=== PATIENT | male | born 1970 | race Caucasian/White ===

== ENCOUNTER 2018-10-24 20:07 | Emergency (ER) | payer MEDICARE, MEDICAID ==
[~2018-10-24] VITALS: Ht 167.6 cm; Wt 77.3 kg
[2018-10-24 20:12] VITALS: Ht 167.6 cm; Wt 77.3 kg
[2018-10-24] MEDS ORDERED: FOLIC ACID1 MG PO (20:14)
[2018-10-24] MEDS ORDERED: [UNRECOGNIZED DRUG - OTHER] (20:14)
[2018-10-24] MEDS ORDERED: BACLOFEN10 MG PO (20:14)
[2018-10-24] MEDS ORDERED: LIBRIUM 10 MG C10 MG PO (20:14)
[2018-10-24] MEDS ORDERED: MOBIC7.5 MG PO (20:15)
[2018-10-24 20:37] LABS: EOSINOPHILS 5.8 % (0-7); HEMATOCRIT 42.6 % (42.0-54.0); HEMOGLOBIN 14.6 g/dL (13.5-17.5); IMMATURE GRANULOCYTES 0.2 % (0-5); LYMPHOCYTES 34.9 % (15-50); MCH 32.3 pg (26.0-34.0); MCHC 34.3 g/dL (31.0-37.0); MCV 94.2 fL (80.0-100.0); MEAN PLATELET VOLUME 10.2 fL (7.4-10.4); MONOCYTES 9.1 % (2-11); PLATELET COUNT 199 10x3/uL (130-400); RBC 4.52 10x6/uL (4.20-6.10); RDW 14.1 % (11.5-14.5); WBC 9.4 10x3/uL (4.8-10.8)
[2018-10-24 21:02] LABS: ALBUMIN 3.3 g/dL (3.4-5.0); ALKALINE PHOSPHATASE 65 U/L (46-116); ALT (SGPT) 50 U/L (10-68); BILIRUBIN - TOTAL 0.28 mg/dL (0.2-1.3); CALC OSMOLALITY 281 mosm/kg (275-300); CALCIUM 8.4 mg/dL (8.5-10.1); CARBON DIOXIDE 26.2 mmol/L (21.0-32.0); CHLORIDE - SERUM 105 mmol/L (98-107); GLUCOSE 107 mg/dL (74-106); POTASSIUM - SERUM 3.9 mmol/L (3.5-5.1); PROTEIN - SERUM 7.3 g/dL (6.4-8.2); SODIUM 139 mmol/L (136-145); UREA NITROGEN 23 mg/dL (7-18); eGFR NON AFRICAN AMERICAN 84 mL/min (90-120)
[2018-10-24] MEDS ORDERED: ALBUTEROL SULF8.5 GM INH (21:26)
[2018-10-24] MEDS ORDERED: VIBRAMYCIN 100100 MG PO (21:26)
[2018-10-24] MEDS ORDERED: PREDNISONE20 MG PO (21:27)
[2018-10-24 22:02] VITALS: BP 128/87
[2018-10-25] MEDS ORDERED: BUSPAR10 MG PO (08:23)
[2018-10-25] MEDS ORDERED: KENALOG 0.1 % 115 GM TOPICAL (08:24)
[2018-10-25] MEDS ORDERED: ZOVIRAX800 MG PO (08:25)
[2018-10-25] MEDS ORDERED: LEXAPRO20 MG PO (08:25)
[2018-10-25 08:39] VITALS: Ht 167.6 cm; Wt 77.3 kg
== END 2018-10-24 22:00 | disposition home or self-care (01) ==
LOC: D.ER 20:07
PROVIDERS: Family Medicine
DX: J45.909 Unspecified asthma, uncomplicated (principal)

== ENCOUNTER 2018-10-25 00:19 | Observation (INO) | payer MEDICARE, MEDICAID ==
[~2018-10-25 00:19] MED LIST: ALBUTEROL SULF8.5 GM INH; BACLOFEN10 MG PO; FOLIC ACID1 MG PO; LIBRIUM 10 MG C10 MG PO; MOBIC7.5 MG PO; PREDNISONE20 MG PO; VIBRAMYCIN 100100 MG PO; [UNRECOGNIZED DRUG - OTHER]
--- NOTE | 2018-10-25 01:00 | NUR ---
MENTAL HEALTH NURSE TO ROOM TO PERFORMED SUICIDAL SCREEN. PT STATES HE IS NOW SUICIDAL AND PLANS TO KILL HIMSELF BY OVERDOSING ON HIS MEDICATIONS. PT MOVED TO SECURE ROOM, BELONGINGS TAKEN, PLACED IN PAPER SCRUBS. SITTER AT BEDSIDE
[2018-10-25 01:03] LABS: BASOPHILS 0.7 % (0-2); EOSINOPHILS 1.6 % (0-7); HEMATOCRIT 41.6 % (42.0-54.0); HEMOGLOBIN 14.5 g/dL (13.5-17.5); IMMATURE GRANULOCYTES 0.1 % (0-5); LYMPHOCYTES 17.3 % (15-50); MCH 32.5 pg (26.0-34.0); MCHC 34.9 g/dL (31.0-37.0); MCV 93.3 fL (80.0-100.0); MEAN PLATELET VOLUME 10.3 fL (7.4-10.4); MONOCYTES 1.5 % (2-11); NEUTROPHILS 78.8 % (40-80); PLATELET COUNT 192 10x3/uL (130-400); RBC 4.46 10x6/uL (4.20-6.10); RDW 13.9 % (11.5-14.5)
--- NOTE | 2018-10-25 01:06 | NUR ---
DR MASSEY NOTIFIED AND 1;1 SITTER OBSERVATION ORDERED. SITTER AT BEDSIDE. NOTIFIED CHARGE NURSE AND ATTENDING IN REGARDS TO ASSESSMENT FINDINGS. RESOURCES GIVEN TO PT AND SAFETY PLAN INITIATED.
[2018-10-25 01:07] LABS: WBC 6.7 10x3/uL (4.8-10.8)
[2018-10-25 01:15] LABS: ALBUMIN 3.4 g/dL (3.4-5.0); ALKALINE PHOSPHATASE 79 U/L (46-116); ALT (SGPT) 47 U/L (10-68); BILIRUBIN - TOTAL 0.42 mg/dL (0.2-1.3); CALC OSMOLALITY 286 mosm/kg (275-300); CALCIUM 8.2 mg/dL (8.5-10.1); CARBON DIOXIDE 26.8 mmol/L (21.0-32.0); CHLORIDE - SERUM 103 mmol/L (98-107); CREATININE - SERUM 1.2 mg/dL (0.6-1.3); POTASSIUM - SERUM 3.9 mmol/L (3.5-5.1); PROTEIN - SERUM 7.4 g/dL (6.4-8.2); SODIUM 138 mmol/L (136-145); UREA NITROGEN 21 mg/dL (7-18); eGFR NON AFRICAN AMERICAN 68 mL/min (90-120)
[2018-10-25 01:16] LABS: GLUCOSE 245 mg/dL (74-106)
[2018-10-25 01:23] LABS: CREATINE KINASE 203 UL (21-232); LIPASE 104 U/L (73-393); MAGNESIUM - SERUM 1.8 mg/dL (1.8-2.4); PRO BNP 18 pg/mL (0-125)
[2018-10-25 01:25] LABS: TROPONIN-I < 0.017 ng/mL (0.000-0.060)
[2018-10-25 01:45] LABS: THYROID STIMULATING HORMONE 0.72 uIU/mL (0.36-3.74)
[2018-10-25 02:35] LABS: UDS - AMPHET NEGATIVE QUAL (NEGATIVE); UDS - BARB NEGATIVE QUAL (NEGATIVE); UDS - BENZO POSITIVE QUAL (NEGATIVE); UDS - COCAINE NEGATIVE QUAL (NEGATIVE); UDS - OPIATE NEGATIVE QUAL (NEGATIVE); UDS - PCP NEGATIVE QUAL (NEGATIVE); UDS - THC NEGATIVE QUAL (NEGATIVE)
--- NOTE | 2018-10-25 05:00 | NUR ---
SPOKE WITH STAFF AT [facility]. STATED THEY WOULD REVIEW HIS CASE UPON DISCHARGE FROM THE HOSPITAL.
--- NOTE | 2018-10-25 06:41 | NUR ---
PT REPORT CALLED TO [facility]. INFORMED BY UNDERCOLLAR BASTER THAT PT COULD NOT BE TRANSPORTED UNTIL A SITTER WAS AVAILABLE FOR PT
[2018-10-25 08:01] VITALS: BP 124/74
[2018-10-25] MEDS ORDERED: BUSPAR10 MG PO (08:23)
[2018-10-25] MEDS ORDERED: KENALOG 0.1 % 115 GM TOPICAL (08:24)
[2018-10-25] MEDS ORDERED: LEXAPRO20 MG PO (08:25)
[2018-10-25] MEDS ORDERED: ZOVIRAX800 MG PO (08:25)
[2018-10-25 08:39] VITALS: BMI 27.5
--- NOTE | 2018-10-25 08:45 | NUR ---
PATIENT ARRIVED TO THE ROOM VIA WHEELCHAIR WITH HOSPITAL STAFF AND PERSONAL SITTER.
[2018-10-25 15:19] VITALS: BP 129/75
--- NOTE | 2018-10-25 16:17 | NUR ---
JENNIFER RICH AND DR RAMIREZ AWARE OF THE LACTIC ACID RESULTS, THEY BOTH HAVE JUST SEEN THE PATIENT
[2018-10-25 20:00] VITALS: BP 105/64
--- NOTE | 2018-10-25 21:44 | NUR ---
PATIENT ASKED ABOUT MEDICATION BIKTARVY. PATIENT INFORMED THAT I SEEN THE MEDICATION IS ON HOLD AND I DO NOT HAVE AN ORDER FOR IT AT THIS TIME. PATIENT STARTED SCREAMING AT ME THAT HE WAS GOING TO LEAVE AMA. PATIENT THEN GOT OUT OF BED AND THROWING HIS ARMS AROUND AND PACING ROOM. PATIENT INFORMED THAT I WOULD CALL THE DOCTOR AND SEE WHAT WAS GOING ON WITH HIS MEDICATION. PATIENT THEN SAID HE BROUGHT HIS MEDICATION IN LAST NIGHT AND I NEEDED TO GIVE IT TO HIM. I TOLD THE PATIENT THAT I DID NOT HAVE ACCESS TO THIS MEDICATION AT THIS TIME BUT I WOULD DO EVERYTHING IN MY POWER TO GET IT TO HIM. HE THEN PROCEEDED TO YELL AT ME THAT I WAS NOT HELPING HIM AND I WAS JUST ARGUING. I TOLD HIM I WAS TRYING TO EXPLAIN TO HIM WHAT WAS HAPPENING WITH HIS CARE. I WENT OUT OF THE ROOM WHILE THE SITTER STAYED WITH HIM TRYING TO CALM HIM DOWN. CHARGE NURSE WENT INTO ROOM TO TALK TO HIM WELL ANOTHER NURSE. I CALLED SECURITY AND HAD THEM COME AND TALK WITH THE PATIENT. I ALSO CALLED THE INTERNATIONAL LOGISTICS MANAGER DOCTOR, CATHIE KUMAR. JOSÉ SAID IF WE FIND THAT MEDICATION THAT WE COULD PUT IN AN ORDER FOR PATIENT'S OWN MEDICATION. PHARMACY WAS CALLED AND THEY STATED WE DO NOT CARRY THAT MEDICATION BECAUSE IT IS SO EXPENSIVE AND IT EXPIRES BEFORE IT IS USED. PATIENT TOLD OTHER NURSE THAT BE CAME IN WITH A BACKPACK LAST NIGHT. ER NURSE KUMAR CALLED AND ASKED IF SHE KNEW WHERE HIS BACKPACK WAS. THAT NURSE DID NOT REMEMBER PATIENT COMING IN WITH A BACKPACK. CAROLINE WITH [facility] CALLED AND ASKED IF PATIENT HAD ANYTHING IN THE SAFE. CAROLINE STATES THERE WAS NOTHING IN THE LOG. HOUSING TRADESHOW WORKER NOTIFIED. CALLED FERMIN IN [facility] WHO DID HIS SUICIDE ASSESSMENT LAST NIGHT AND HE SAID PATIENT DID NOT HAVE ANY PROPERTY WHEN HE CAME IN. JENNY IN ER STATED THAT THE FIRST TIME PATIENT CAME IN LAST NIGHT HE CAME IN WITH A BACKPACK AND LEFT WITH A BACKPACK. WHEN HE CAME IN THE SECOND TIME WHICH GOT HIM ADMITTED HE CAME BY EMS WITHOUT A BACKPACK. THIS NURSE CALLED HIS MOTHER AMOL WHO IS HIS EMERGENCY CONTACT AND ASKED IF SHE HAD ACCESS TO HIS MEDICATION. SHE SAID SHE HAD A PHAM TO HIS APARTMENT AND WOULD CHECK IT TOMORROW. PATIENT'S MOTHER THEN SAID SHE DID NOT THINK HE HAD HIS MEDICATION AT HIS HOME BECAUSE HE HAD TOLD HER A FEW DAYS PRIOR THAT HE LEFT HIS MEDICATIONS AT HER HOME. PATIENT'S MOTHER SAID SHE WOULD LOOK FOR HIS MEDICATIONS AND TRY TO BRING THEM TO THE HOSPITAL TOMORROW IF SHE FOUND THEM.
[2018-10-26] VITALS: BP 116/74
--- NOTE | 2018-10-26 | NUR ---
PATIENT CAME OUT OF ROOM TO THE NURSE'S STATION SCREAMING ABOUT HIS MEDICATION. PATIENT WAS INFORMED THAT WE HAVE BEEN TRYING TO TRACK DOWN HIS BELONGINGS. PATIENT WAS THROWING HIS HANDS AROUND, CURSING AND SCREAMING THAT WE WERE DOING NOTHING TO FIND HIS PROPERTY. HE STATES HE IS OVERDUE FOR HIS MEDICATION AND WE NEED TO GIVE IT TO HIM. HE ALSO STATES HE IS GOING TO [facility] AND STAFF IF HE DIDN'T GET IT RIGHT NOW. THIS NURSE CALLED [facility] AFTER HE REFUSED TO GO BACK TO HIS ROOM. NURSES WITH HELP OF [facility]KE GOT HIM INTO HIS ROOM.
--- NOTE | 2018-10-26 00:51 | NUR ---
PATIENT'S BELONGINGS WERE FOUND IN CHRISS'S OFFICE. BELONGINGS INVENTORIED. BELONGINGS INCLUDE SAFETY PLAN, 1 PAIR SHOES, 1 HAT, 3 SHIRTS, 1 PAIR OF SHORTS, 1 PAIR UNDERWEAR, 1 PAIR PANTS, 1 PAIR SOCKS, 1 PAIR PAJAMA PANTS, NICOTINE GUM, KEYS, WALLET WITH PAPER SEALER'S LICENSE, 1 BANK CARD AND 9 DOLLARS IN [place]. CELL PHONE, BELT, GIFT CARD, NECKLACE WITH CROSS, BUTCHER HEAD, NASAL SPRAY, 4 SCRATCH OFF TICKETS, SMALL BLACK BAG, 2 TOOTHBRUSHES, 1 TOOTHPASTE, 1 HAIRBRUSH, 2 SMALL BOTTLE OF SHAMPOO, BOTTLE HEAD PIECE ASSEMBLER, APPOINTMENT CALANDER, MEDICATION SCRIPTS, 3 CHARGERS, 5 DOLLARS AND 36 CENTS IN COINS, SPEAKER, 1 PACK OF CIGARETTES, 1 EMPTY PACK OF CIGARETTES, A BATTERY BOOSTER AND ONE LARGE BLACK BAG. ALL OF THESE BELONGINGS WERE PLACED IN THE LARGE BLACK BAG BY PATIENT AND PUT INTO A BLUE LAUNDRY BAG WITH A NAME STICKER ATTACHED. ALSO IN BELONGINGS WERE MULTIPLE MEDICATIONS, BIKTARVY 21 COUNT, BACLOFEN 5 MG 77 COUNT, BACTRIM BOTTLE WITH MIXED MEDICATIONS THAT INCLUDES WHITE TABLETS WITH 251 IG WITH 10 COUNT, PINK TABLE WITH A J AND TRIANGLE WITH 2 COUNT AND WHITE TABLET H49 WITH 11 COUNT. FOLIC ACID 1 MG 21 COUNT, MELOXICAM 15MG 20 COUNT, CHLORDIAZEPOXIDE 10MG 59 COUNT, COUGH DROPS 15 COUNT TRIAMCINOLO 0.1% 1 COUNT AND PROAIR 1 COUNT. ALL MEDICATIONS PLACED IN A PATIENT'S OWN MEDICATION ENVELOPE WITH NAME AND SIGNATURE ON IT. HOUSING STUD MASTER/MISTRESS CALLED TO STOCK PITCHER PROPERTY AND MEDICATIONS.
--- NOTE | 2018-10-26 01:17 | NUR ---
HOUSING DIGITAL ACCOUNT SUPERVISOR PLACED BELONGINGS IN CHRISS'S OFFICE. WILL PASS TO DAYSHIFT WERE HIS BELONGINGS ARE.
--- NOTE | 2018-10-26 02:23 | NUR ---
I have reviewed this patient and I concur with the Shift Assessment completed by the Licensed Practical Nurse today this shift.
[2018-10-26 06:55] LABS: BASOPHILS 0.1 % (0-2); EOSINOPHILS 2.3 % (0-7); HEMATOCRIT 40.5 % (42.0-54.0); HEMOGLOBIN 13.9 g/dL (13.5-17.5); IMMATURE GRANULOCYTES 0.1 % (0-5); LYMPHOCYTES 31.2 % (15-50); MCH 31.9 pg (26.0-34.0); MCHC 34.3 g/dL (31.0-37.0); MCV 92.9 fL (80.0-100.0); MONOCYTES 5.9 % (2-11); NEUTROPHILS 60.4 % (40-80); PLATELET COUNT 165 10x3/uL (130-400); RBC 4.36 10x6/uL (4.20-6.10); RDW 14.1 % (11.5-14.5); WBC 7.8 10x3/uL (4.8-10.8)
--- NOTE | 2018-10-26 07:00 | NUR ---
PATIENT SLEEPING ON HIS RIGHT SIDE, SNORING. SITTER AT BEDSIDE. DOOR OPEN
[2018-10-26 07:02] LABS: CALCIUM 8.4 mg/dL (8.5-10.1); CARBON DIOXIDE 27.9 mmol/L (21.0-32.0); CHLORIDE - SERUM 107 mmol/L (98-107); CREATININE - SERUM 0.9 mg/dL (0.6-1.3); MAGNESIUM - SERUM 2.1 mg/dL (1.8-2.4); POTASSIUM - SERUM 3.6 mmol/L (3.5-5.1); SODIUM 142 mmol/L (136-145); eGFR NON AFRICAN AMERICAN > 90 mL/min (90-120)
[2018-10-26 07:06] LABS: CALC OSMOLALITY 283 mosm/kg (275-300); GLUCOSE 100 mg/dL (74-106); UREA NITROGEN 15 mg/dL (7-18)
--- NOTE | 2018-10-26 07:40 | NUR ---
PATIENT ALERT, SOMEWHAT RESTLESS, WATCHING TV, 1:[address] PER ORDERS FROM DR. MASSEY.
[2018-10-26 08:37] VITALS: BP 150/98
--- NOTE | 2018-10-26 11:31 | MORECARE ---
CASE MANAGEMENT DISCHARGE SUMMARY PATIENT: SHERMAN HAYDEN V UNIT: [id number] ADM DATE: 10/25/18 AGE: 48 : 69 SEX: M ROOM/BED: D.2111 AUTHOR: LEONARDO WARE PHYSICIAN: REFERRING PHYSICIAN: BRANDON ROGERS MD DATE OF SERVICE: 10/26/18 Discharge Plan Patient Name: SHERMAN HAYDEN [facility] [facility] 1970 Planned Disposition: Inpatient Psych Facility Anticipated Discharge Date: 10/26/18 Discharge Date: Expected LOS: 1 Initial Reviewer: [id number] Initial Review Date: 10/26/2018 Generated: 10/26/18 12:31 pm External Providers External Provider: [facility] Next Contact Date: 10/26/2018 Service Request Date: Service Type: Resolution: Reviewer: Comments: Coverage Notice Reviewer: [id number] Boone Morales Notice Issued Date-Time: 10/26/2018 9:40 Notice Type: Medicare Outpatient Observation Notice Notice Delivered To: Patient Relationship to Patient: Self Tax Accountant Name: Delivery Method: HAND - Hand Delivered Lilian Days: Prior Verbal Notification: Recipient Understood Notice: Yes Recipient Signature: Yes Med Rec Note Co-signed by Attending: Coverage Notice Comment: Patient Name: SHERMAN HAYDEN Page [id number] at 1131 All edits/amendments must be made on the electronic document DICTATION DATE: 10/26/18 1131 AD OPERATIONS SPECIALIST: RAYMOND 10/26/18 1131 RPT#: [id number] DC DATE: STATUS: ADM IN [facility] [address] [place] [address] END OF REPORT
--- NOTE | 2018-10-26 11:45 | MORECARE ---
CASE MANAGEMENT DISCHARGE SUMMARY PATIENT: SHERMAN HAYDEN V UNIT: [id number] ADM DATE: 10/25/18 AGE: 48 : 69 SEX: M ROOM/BED: D.211 AUTHOR: LEONARDO WARE PHYSICIAN: REFERRING PHYSICIAN: BRANDON ROGERS MD DATE OF SERVICE: 10/26/18 Discharge Plan Patient Name: SHERMAN HAYDEN [facility] [facility] 1970 Planned Disposition: Inpatient Psych Facility Anticipated Discharge Date: 10/26/18 Discharge Date: Expected LOS: 1 Initial Reviewer: [id number] Initial Review Date: 10/26/2018 Generated: 10/26/18 12:45 pm Coverage Notice Reviewer: [id number] - Cruz Morales Notice Issued Date-Time: 10/26/2018 9:40 Notice Type: Medicare Outpatient Observation Notice Notice Delivered To: Patient Relationship to Patient: Self Press Washer Name: Delivery Method: HAND - Hand Delivered Lilian Days: Prior Verbal Notification: Recipient Understood Notice: Yes Recipient Signature: Yes Med Rec Note Co-signed by Attending: Coverage Notice Comment: Last DP export: 10/26/18 10:31 a Patient Name: SHERMAN HYADEN Page [phone] at 1145 All edits/amendments must be made on the electronic document DICTATION DATE: 10/26/18 1144 TELESCOPE OPERATOR: RAYMOND 10/26/18 1144 RPT#: [id number] DC DATE: STATUS: ADM IN [facility] [address] [place] [address] END OF REPORT
--- NOTE | 2018-10-26 12:07 | MORECARE ---
CASE MANAGEMENT DISCHARGE SUMMARY PATIENT: SHERMAN HAYDEN V UNIT: [id number] ADM DATE: 10/25/18 AGE: 48 : 69 SEX: M ROOM/BED: D.[facility] AUTHOR: LEONARDO WARE PHYSICIAN: REFERRING PHYSICIAN: BRANDON ROGERS MD DATE OF SERVICE: 10/26/18 Discharge Plan Patient Name: SHERMAN HAYDEN Facility: [facility]:[place] : 1970 Planned Disposition: Inpatient Psych Facility Anticipated Discharge Date: 10/26/18 Discharge Date: Expected LOS: 1 Initial Reviewer: [id number] Initial Review Date: 10/26/2018 Generated: 10/26/18 1:07 pm DCPIA - Discharge Planning Initial Assessment Updated by [email or web address]: Cruz Morales on 10/26/18 12:01 pm * Is the patient Alert and Oriented? Yes * How many steps to enter\exit or inside your home? 3 FLIGHTS * PCP DR. LACY * Pharmacy [facility] * Preadmission Environment Home Alone * ADLs Independent * Equipment None * Other Equipment NO MEDICAL EQUIPMENT PROVIDER PREFERENCE * List name and contact numbers for known caregivers / representatives who currently or will assist patient after discharge: NONE PER PATIENT * Verbal permission to speak to the caregivers and representatives has been obtained from the patient. No * Community resources currently utilized None * Please name any agencies selected above. NONE - PATIENT REPORTS NO OUTPATIENT PSYCHIATRIC FOLLOW UP AND NO LOCAL PSYCHIATRIST * Additional services required to return to the preadmission environment? Yes * Can the patient safely return to the preadmission environment? Yes * Has this patient been hospitalized within the prior 30 days at any hospital? No Coverage Notice Reviewer: [id number] - Cruz Morales Notice Issued Date-Time: 10/26/2018 9:40 Notice Type: Medicare Outpatient Observation Notice Notice Delivered To: Patient Relationship to Patient: Self Director Of Quality Name: Delivery Method: HAND - Hand Delivered Lilian Days: Prior Verbal Notification: Recipient Understood Notice: Yes Recipient Signature: Yes Med Rec Note Co-signed by Attending: Coverage Notice Comment: Last DP export: 10/26/18 10:45 a Patient Name: SHERMAN HAYDEN Page [phone] at 1207 All edits/amendments must be made on the electronic document DICTATION DATE: 10/26/18 1206 ADVICE CLERK: RAYMOND 10/26/18 1206 RPT#: [id number] DC DATE: STATUS: ADM IN [facility] [address] [place] [address] END OF REPORT
[2018-10-26 12:08] VITALS: BP 141/90
--- NOTE | 2018-10-26 12:14 | MORECARE ---
CASE MANAGEMENT DISCHARGE SUMMARY PATIENT: SHERMAN HAYDEN V UNIT: [id number] ADM DATE: 10/25/18 AGE: 48 : 68 SEX: M ROOM/BED: D.2111 AUTHOR: JEANIE,DOC PHYSICIAN: REFERRING PHYSICIAN: BRANDON ROGERS MD DATE OF SERVICE: 10/26/18 Discharge Plan Patient Name: SHERMAN HAYDEN Facility: [facility]:[place] : 1970 Planned Disposition: Inpatient Psych Facility Anticipated Discharge Date: 10/26/18 Discharge Date: Expected LOS: 1 Initial Reviewer: [email or web address] Initial Review Date: 10/26/2018 Generated: 10/26/18 1:14 pm Comments DCP- Discharge Planning Updated by [email or web address]: Cruz Morales on 10/26/18 11:[address] Patient Name: SHERMAN HAYDEN Admission Status: ER Accout number: [id number] Admission Date: 10-25-2018 : 1970 Admission Diagnosis: Attending: BRANDON ROGERS Current LOS: 1 Anticipated DC Date: 10-26-2018 Planned Disposition: Inpatient Psych Facility Primary Insurance: [facility] MEDICARE SOLUTIONS PLANNED EXTERNAL PROVIDER: [facility] OR FIRST ACCEPTING FACILITY Discharge Planning Comments: CM REVIEWED CHART WITH PHYSICIAN DIRECTION FOR INPATIENT PSYCHIATRIC CARE. CM MET WITH PT IN ROOM TO DISCUSS DISCHARGE PLANNING AND NEEDS. PT REPORTS LIVING AT HOME INDEPENDENTLY AND ALONE. PT HAS NO MEDICAL EQUIPMENT AND NO OUTSIDE SERVICES ASSISTING IN THE HOME. PT DOES NOT ATTEND OUTPATIENT PSYCHIATRIC COUNSELING, HAS NO OUTPATIENT PSYCHIATRIST LOCALLY. PT REPORTS DR. LACY PRESCRIBES HIS MEDICATIONS. PT REPORTS HIS LAST INPATIENT PSYCHIATRIC CARE WAS ABOUT 10 MONTHS AGO AT [facility] IN [place]. PT REPORTS HE WAS THERE FOR DEPRESSION AND MEDICATION ADJUSTMENTS. PT CONTINUES TO REPORTS SUICIDAL IDEATIONS WITH PLAN TO TAKE ALL OF HIS PILLS AT HOME. PT IS WILLING FOR PLACEMENT AND REQUESTED [facility] IN [place] OR SOMEWHERE IN [place]. CM EXPLAINED THAT TRANSFER WOULD BE REQUESTED FOR THE [facility], BUT IS DECLINED, IT WOULD BE THE CLOSEST FIRST ACCEPTING FACILITY. PT REPORTS AGREEMENT WITH PLAN. MEDICARE OUTPATIENT OBSERVATION NOTICE PROVIDED AND DISCUSSED. CM PAGED AND SPOKE TO CATHIE MIRANDA WHO ADVISED TO GIVE DR. SHEA'S NUMBER FOR DOCTOR TO DOCTOR CALL. CM CALLED [facility], , PROVIDED INFORMATION TO XIN. CM FAXED TRANSFER INFORMATION PACKET TO [facility] FA[facility] AT [phone]. CM WAITING FIRST ACCEPTING PSYCHIATRIC FACILITY FOR TRANSFER VIA AMBULANCE. Termite Control Technician: Cruz Morales DCPIA - Discharge Planning Initial Assessment Updated by [email or web address]: Cruz Morales on 10/26/18 12:01 pm * Is the patient Alert and Oriented? Yes * How many steps to enter\exit or inside your home? 3 FLIGHTS * PCP DR. LACY * Pharmacy [facility] * Preadmission Environment Home Alone * ADLs Independent * Equipment None * Other Equipment NO MEDICAL EQUIPMENT PROVIDER PREFERENCE * List name and contact numbers for known caregivers / representatives who currently or will assist patient after discharge: NONE PER PATIENT * Verbal permission to speak to the caregivers and representatives has been obtained from the patient. No * Community resources currently utilized None * Please name any agencies selected above. NONE - PATIENT REPORTS NO OUTPATIENT PSYCHIATRIC FOLLOW UP AND NO LOCAL PSYCHIATRIST * Additional services required to return to the preadmission environment? Yes * Can the patient safely return to the preadmission environment? Yes * Has this patient been hospitalized within the prior 30 days at any hospital? No Coverage Notice Reviewer: [id number] - Cruz Morales Notice Issued Date-Time: 10/26/2018 9:40 Notice Type: Medicare Outpatient Observation Notice Notice Delivered To: Patient Relationship to Patient: Self Agent Ticketing Gate Name: Delivery Method: HAND - Hand Delivered Lilian Days: Prior Verbal Notification: Recipient Understood Notice: Yes Recipient Signature: Yes Med Rec Note Co-signed by Attending: Coverage Notice Comment: Last DP export: 10/26/18 11:07 a Patient Name: SHERMAN HAYDEN Page [phone] at 1214 All edits/amendments must be made on the electronic document DICTATION DATE: 10/26/18 1214 BARK SCALER: RAYMOND 10/26/18 1214 RPT#: [id number] DC DATE: STATUS: ADM IN [facility] [address] [place] [address] END OF REPORT
--- NOTE | 2018-10-26 15:15 | CN ---
PATIENT NAME:SHERMAN HAYDEN V MEDICAL RECORD: [id number] : 68 LOCATION:DUsman D.2111 ADMIT DATE: 10/25/18 ACCOUNT: [id number] CONSULTING PHYSICIAN: DAWOOD MASSEY MD REFERRING PHYSICIAN: BRANDON ROGERS MD DATE OF CONSULTATION: 10/25/2018 IDENTIFYING DATA: The patient is 48 years old. He is admitted to the hospital on a voluntary basis. CHIEF COMPLAINT: Shortness of breath. HISTORY OF PRESENT ILLNESS: The patient came to the Emergency Room complaining of shortness of breath after having sprayed for bed bugs in his apartment. He says he wants to kill himself because there are bugs in his apartment. He has delusions and is telling me that he intends to kill himself. He endorses numerous neurovegetative depressive symptoms as well as psychotic symptoms. MENTAL STATUS EXAMINATION: The patient is awake, alert and oriented to person, place, and somewhat to time and situation. His mood is flat. His affect is constricted. Thought processes are circumstantial. Memory, concentration, and abstraction abilities are mildly impaired and he denies any intent to harm others, but endorses suicidal thoughts as well as psychotic symptoms. ASSESSMENT: Schizophrenia, chronic undifferentiated PLAN: The patient is in need of inpatient psychiatric care and medication stabilization. He is delusional and suicidal. He has a longitudinal history consistent with schizophrenia with extensive inpatient and outpatient treatment. In addition to this, he is HIV positive, hepatitis C positive, has a seizure disorder and diabetes. He does not appear to have any acute medical needs that would prohibit him from going to an inpatient facility. He has been to the [facility] in [place] before and would like to go back there if practicable. TRANSINT:[id number] Voice Confirmation ID: [id number] DOCUMENT ID: [id number] DAWOOD MASSEY MD at 1515 CC: [id number] DICTATION DATE: 10/25/18 1521 SHEEP HERDER: 10/25/18 1543 ADM IN [place] [address] [place] [address]
--- NOTE | 2018-10-26 15:47 | MORECARE ---
CASE MANAGEMENT DISCHARGE SUMMARY PATIENT: SHERMAN HAYDEN V UNIT: [id number] ADM DATE: 10/25/18 AGE: 48 : 68 SEX: M ROOM/BED: D.[facility] AUTHOR: LEONARDO WARE PHYSICIAN: REFERRING PHYSICIAN: BRANDON ROGERS MD DATE OF SERVICE: 10/26/18 Discharge Plan Patient Name: SHERMAN HAYDEN Facility: [facility]:[place] : 1970 Planned Disposition: Inpatient Psych Facility Anticipated Discharge Date: 10/26/18 Discharge Date: Expected LOS: 1 Initial Reviewer: [id number] Initial Review Date: 10/26/2018 Generated: 10/26/18 4:47 pm Comments DCP- Discharge Planning Updated by [id number]: Cruz Morales on 10/26/18 2:[address] Patient Name: SHERMAN HAYDEN Encounter No: [id number] : 1970 Primary Insurance: [employer] MEDICARE SOLUTIONS Anticipated DC Date: 10-26-2018 Planned Disposition: Inpatient Psych Facility External Planned Provider: [facility] follow-up note: CM RECEIVED CALL FROM XIN OF [facility] WHO ADVISED THAT PT HAS BEEN ACCEPTED BY DR. CAI OF [facility], PT WILL ADMIT TO UNIT 1, NUMBER FOR NURSE REPORT IS [phone]. XIN ADVISED THAT DR. CAI DOES NOT REQUIRE A DOC TO DOC. CM NOTIFIED BEDSIDE NURSE, CATHIE MIRANDA AND CHANNEL PROCESS SUPERVISOR NURSE. PT NOTIFIED AND IN AGREEMENT WITH TRANSFER TO THE [facility] IN [place]. NURSE REPORT IS [phone], PT TO ADMIT TO UNIT 1 AT THE [facility]. PT TO TRANSPORT VIA AMBULANCE. ZANA Ortez DCP- Discharge Planning Updated by [id number]: Cruz Morales on 10/26/18 11:[address] Patient Name: SHERMAN HAYDEN Admission Status: ER Accout number: [id number] Admission Date: 10-25-2018 : 1970 Admission Diagnosis: Attending: BRANDON ROGERS Current LOS: 1 Anticipated DC Date: 10-26-2018 Planned Disposition: Inpatient Psych Facility Primary Insurance: [employer] MEDICARE SOLUTIONS PLANNED EXTERNAL PROVIDER: [facility] OR FIRST ACCEPTING FACILITY Discharge Planning Comments: CM REVIEWED CHART WITH PHYSICIAN DIRECTION FOR INPATIENT PSYCHIATRIC CARE. CM MET WITH PT IN ROOM TO DISCUSS DISCHARGE PLANNING AND NEEDS. PT REPORTS LIVING AT HOME INDEPENDENTLY AND ALONE. PT HAS NO MEDICAL EQUIPMENT AND NO OUTSIDE SERVICES ASSISTING IN THE HOME. PT DOES NOT ATTEND OUTPATIENT PSYCHIATRIC COUNSELING, HAS NO OUTPATIENT PSYCHIATRIST LOCALLY. PT REPORTS DR. LACY PRESCRIBES HIS MEDICATIONS. PT REPORTS HIS LAST INPATIENT PSYCHIATRIC CARE WAS ABOUT 10 MONTHS AGO AT [facility] IN [place]. PT REPORTS HE WAS THERE FOR DEPRESSION AND MEDICATION ADJUSTMENTS. PT CONTINUES TO REPORTS SUICIDAL IDEATIONS WITH PLAN TO TAKE ALL OF HIS PILLS AT HOME. PT IS WILLING FOR PLACEMENT AND REQUESTED THE [facility] IN [place] OR SOMEWHERE IN [place], [place]. CM EXPLAINED THAT TRANSFER WOULD BE REQUESTED FOR THE [facility], BUT IS DECLINED, IT WOULD BE THE CLOSEST FIRST ACCEPTING FACILITY. PT REPORTS AGREEMENT WITH PLAN. MEDICARE OUTPATIENT OBSERVATION NOTICE PROVIDED AND DISCUSSED. CM PAGED AND SPOKE TO CATHIE MIRANDA WHO ADVISED TO GIVE DR. SHEA'S NUMBER FOR DOCTOR TO DOCTOR CALL. CM CALLED [facility], , PROVIDED INFORMATION TO XIN. CM FAXED TRANSFER INFORMATION PACKET TO [facility] FA[facility] AT [phone]. CM WAITING FIRST ACCEPTING PSYCHIATRIC FACILITY FOR TRANSFER VIA AMBULANCE. Wood Ski Maker: Cruz Morales [facility] Initial Assessment Updated by [id number]: Cruz Morales on 10/26/18 12:01 pm * Is the patient Alert and Oriented? Yes * How many steps to enter\exit or inside your home? 3 FLIGHTS * PCP DR. LACY * Pharmacy [facility] * Preadmission Environment Home Alone * ADLs Independent * Equipment None * Other Equipment NO MEDICAL EQUIPMENT PROVIDER PREFERENCE * List name and contact numbers for known caregivers / representatives who currently or will assist patient after discharge: NONE PER PATIENT * Verbal permission to speak to the caregivers and representatives has been obtained from the patient. No * Community resources currently utilized None * Please name any agencies selected above. NONE - PATIENT REPORTS NO OUTPATIENT PSYCHIATRIC FOLLOW UP AND NO LOCAL PSYCHIATRIST * Additional services required to return to the preadmission environment? Yes * Can the patient safely return to the preadmission environment? Yes * Has this patient been hospitalized within the prior 30 days at any hospital? No Coverage Notice Reviewer: [id number] Boone Morales Notice Issued Date-Time: 10/26/2018 9:40 Notice Type: Medicare Outpatient Observation Notice Notice Delivered To: Patient Relationship to Patient: Self Audio Visual Manager Name: Delivery Method: HAND - Hand Delivered Lilian Days: Prior Verbal Notification: Recipient Understood Notice: Yes Recipient Signature: Yes Med Rec Note Co-signed by Attending: Coverage Notice Comment: Last DP export: 10/26/18 11:14 a Patient Name: SHERMAN HAYDEN Page [phone] at 1547 All edits/amendments must be made on the electronic document DICTATION DATE: 10/26/18 1546 PONY CYLINDER PRESS OPERATOR: RAYMOND 10/26/18 1546 RPT#: [id number] DC DATE: STATUS: ADM IN [facility] [address] [place] [address] END OF REPORT
--- NOTE | 2018-10-26 16:55 | NUR ---
CALLED REPORT TO EVAN RAGLAND RN AT [facility], . PATIENT IS TO GO TO UNIT 1. RITA CALLED, SPOKE WITH MASSIMO Sumner AND SHE GAVE AN ESTIMATED COMPOSITE MECHANIC TIME OF 1730. MARGIE CORRALESCLERK CHECKER CALLED TO REPORT PATIENT HAS A BED AND THE NEED TO SIGN THE FORM
[2018-10-26 17:16] VITALS: BP 137/75
[2018-11-15] MEDS ORDERED: PLAVIX75 MG PO (14:32)
[2018-11-15] MEDS ORDERED: METOPROLOL TART50 MG PO (14:32)
[2018-11-15] MEDS ORDERED: PRAVACHOL20 MG PO (14:33)
== END 2018-10-26 17:50 | disposition short-term general hospital (02) ==
LOC: D.ER 00:19 → D.M2 05:06 → OBSVTIME 05:06 → D.M2 05:06 → D.M3 07:16 → D.M2 07:18
PROVIDERS: Family Medicine; ADMIT Family Medicine; ATTEND Family Medicine
DX: J45.901 Unspecified asthma with (acute) exacerbation (principal); E11.65 Type 2 diabetes mellitus with hyperglycemia; B20 Human immunodeficiency virus [HIV] disease; F20.5 Residual schizophrenia; F41.9 Anxiety disorder, unspecified; F32.9 Major depressive disorder, single episode, unspecified

== ENCOUNTER 2018-11-05 07:10 | Inpatient (IN) | payer MEDICARE, MEDICAID ==
[~2018-11-05] VITALS: Ht 167.6 cm; Wt 78.6 kg
--- NOTE | ~2018-11-05 | HEMODYNAMI ---
PATIENT:SHERMAN HAYDEN V MEDICAL RECORD: [id number] : 68 LOCATION:[facility] ADMISSION DATE: 11/05/18 Generatedon:11/05/20189:10 Patient name: SHERMAN HAYDEN Patient #: [id number] SSN: : 1970 Date of study: 11/05/2018 Page: Of Hemodynamic Procedure Report Patient Data Patient Demographics Procedure consent was obtained First Name: SHERMAN Gender: Male Last Name: JACKELYN : 1970 [facility] Initial: V Age: 48 year(s) Patient #: [id number] Race: Unknown Additional ID: [id number] Contact details Address: [address] [place] [address] State: [place] City: [facility] Zip code: [address] Admission Admission Data Admission Date: 11/05/2018 Admission Time: 7:10 Procedure Procedure Types Cath Procedure Diagnostic Procedure LHC LHC w/Coronaries PCI Procedure AMI/SVG/GREENHOUSE ASSISTANT PTCA or Stent AMI-BMS/CHELO Initial Procedure Description Procedure Date Procedure Date: 11/05/2018 Procedure Start Time: 8:19 Procedure End Time: 9:09 Procedure Staff Name Function Jj Marte MD Performing Physician Darian Chin RT Monitor Rebecca Stevens RN Nurse Gabrielle Chappell RT Scrub Kota Alaniz MD Additional personnel Procedure Data Cath Procedure Fluoroscopy Diagnostic fluoroscopy Total fluoroscopy Time: 1.9 time: 1.9 min min Diagnostic fluoroscopy Total fluoroscopy dose: 399 dose: 399 mGy mGy Contrast Material Contrast Material Type Amount (ml) Isovue 370 46 Entry Location Entry Primary Successful Side Size Upsize Upsize Entry Closure Lee ccessful Closure Location (Fr) 1 (Fr) 2 (Fr) Remarks Device Remarks Radial Right 6 Fr Mechanical artery Short Compression Estimated blood loss: 10 ml Diagnostic catheters Device Type Used For End Catheter Placement DIAGNOSTIC Russell 110cm 5 Procedure Fr catheter ([id number]) Procedure Complications No complications Procedure Medications Medication Administration Route Dosage Oxygen NRB 12 l/min Lidocaine 2% added to field 20 Heparin Flush Bag added to field 2 bags (1000units/500ml NS) 0.9% NaCl I.V. 100 ml/hr Radial Cocktail I.A. 1 syringe (Verapamil 2mg/Nitro 400mcg/Heparin 1500units) Refer to Anesthesia Notes for Sedation Medications Heparin Bolus I.V. 4000 units Lopressor I.V. 5 mg Integrilin (Bolus I.V. 6.8 ml 2mg/ml) Hemodynamics Rest Heart Rate: 43 (bpm) Snapshots Pre Cath Intra NCS Post Cath Vital Signs Time Heart Resp SPO2 etCO2 NIBP (mmHg) Rhythm Pain Sedation Rate (ipm) (%) (mmHg) Status Level (bpm) 8:03:52 126 26 94 0 139/85(101) NSR w/ ST 0 (11) 10(A) Elevation , No pain 8:08:06 123 21 93 0 147/82(115) NSR w/ ST 0 (11) 10(A) Elevation , No pain 8:12:18 122 19 92 0 142/84(101) NSR w/ ST 0 (11) 10(A) Elevation , No pain 8:16:36 123 18 95 0 146/78(98) NSR w/ ST 0 (11) 9(A) Elevation , No pain 8:20:46 122 16 93 0 130/65(97) NSR w/ ST 0 (11) 9(A) Elevation , No pain 8:24:57 122 20 92 0 138/80(112) NSR w/ ST 0 (11) 9(A) Elevation , No pain 8:29:07 107 16 92 0 123/75(95) NSR w/ ST 0 (11) 9(A) Elevation , No pain 8:33:19 108 18 94 0 120/75(92) NSR w/ ST 0 (11) 9(A) Elevation , No pain 8:37:23 107 20 96 0 119/74(89) NSR w/ ST 0 (11) 9(A) Elevation , No pain 8:41:29 107 19 94 0 123/75(91) NSR w/ ST 0 (11) 9(A) Elevation , No pain 8:45:39 107 19 95 0 121/74(89) NSR w/ ST 0 (11) 9(A) Elevation , No pain 8:49:49 107 18 96 0 123/74(93) NSR w/ ST 0 (11) 9(A) Elevation , No pain 8:53:56 213 20 93 0 126/73(96) NSR w/ ST 0 (11) 9(A) Elevation , No pain 8:58:04 125 18 93 0 120/70(92) NSR w/ ST 0 (11) 9(A) Elevation , No pain 9:02:14 217 17 91 0 119/71(91) NSR w/ ST 0 (11) 9(A) Elevation , No pain 9:06:22 218 18 93 0 117/65(95) NSR w/ ST 0 (11) 9(A) Elevation , No pain Medications Time Medication Route Dose Verified Delivered Reason Notes E ffectiveness by by 8:16:26 Oxygen NRB 12 Jj Fernandez used for l/min Estuardo Stevens RN procedure 8:16:33 Lidocaine 2% added 20ml Jj Gardner for local to vial Estuardo Marte MD anesthetic field 8:16:39 Heparin Flush added 2 bags Jj Gardner used for Bag to Estuardo Marte MD procedure (1000units/500ml field NS) 8:16:46 Refer to Jj Gardner Anesthesia Notes Estuardo Marte MD for Sedation Medications 8:16:46 0.9% NaCl I.V. 100 Jj Fernandez Per ml/hr Estuardo Stevens RN physician 8:20:37 Lopressor I.V. 5 mg Jj Fernandez Per Estuardo Stevens RN physician 8:20:40 Radial Cocktail I.A. 1 Jj Gardner for (Verapamil syringe Estuardo Marte MD vasodilation 2mg/Nitro 400mcg/Heparin 1500units) 8:21:25 Heparin Bolus I.V. 4000 Jj Fernandez used for units Estuardo Stevens RN procedure 8:24:03 Integrilin I.V. 6.8 ml Jj Fernandez for (Bolus 2mg/ml) Estuardo Stevens RN antiplatelet therapy Procedure Log Time Note 7:44:05 Rebecca Stevens RN sent for patient. Start room use. 7:44:06 Time tracking: Regular hours (M-F 7:00 - 5:00) 7:44:10 Plan of Care:Hemodynamics will remain stable., Cardiac rhythm will remain stable., Comfort level will be maintained., Respiratory function will remain adequate., Patient/ family verbilizes understanding of procedure., Procedure tolerated without complication., Recovers from procedure without complications.. 7:44:12 Diagnostic Cath status Urgent 7:44:14 Signed procedure consent form obtained from patient. 7:59:09 Patient arrives emergently. 7:59:42 Patient received from ED to CCL 1 Alert and oriented. Tansferred to table in Supine position. 7:59:53 Warm blankets applied, and doreen hugger turned on for patient comfort. 8:00:01 Correct patient and procedure confirmed by team. 8:02:31 ECG and BP/O2 sat monitors applied to patient. 8:02:33 Vital chart was started 8:02:34 Baseline sample Acquired. 8:02:42 Rhythm: sinus tachycardia, w/ ST elevation 8:02:46 Full Disclosure recording started 8:03:15 H&P Date Dictated: 11/05/2018 ER History on chart.. 8:03:50 Family unavailable. 8:05:14 PATIENT HAS PSYCHOTIC EVENT THINKS THAT HE HAS SPIDERS AND BUGS ON HIM. 8:06:11 Kota Alaniz MD present and monitoring patient for TIVA. 8:09:08 Is the patient allergic to Iodine/contrast media? Unknown. 8:09:24 Is patient on blood thinner?Yes 8:09:30 ACC The patient was administered the following blood thiners within the last 24 hours: ACCPlavix, ACCHeparin 8:09:58 IV patent on arrival in left hand, right antecubital with 0.9% NaCl at KVO. 8:10:09 Right Radial & Right Groin area was prepped with chlora-prep and draped in sterile fashion 8:10:12 Alarms reviewed by R. N. 8:10:14 Sharps counted by scrub and verified by R.N. 8:15:07 --------ALL STOP TIME OUT------ 8:15:07 Final Timeout: patient, procedure, and site verified with staff and physician. All members of the team are in agreement. 8:15:40 Right Radial & Right Groin site verified by team. 8:15:42 Pt arrived into emergency dept in acute psychosis with st elevation. Anesthesia contacted for sedation plan due to pt swatting and kicking at staff, unable to hold body still due to being "attacked" by bugs and snakes. 8:15:44 Fire Safety Assessment: A--An alcohol-based skin anteseptic being used preoperatively., C--Open oxygen or nitrous oxide is being used., D--An ESU, laser, or fiber-optic light is being used. 8:15:48 Physical assessment completed. ASA score P 5 - A moribund patient who is not expected to survive without the operation as per Jj Marte MD. 8:16:26 Oxygen 12 l/min NRB was administered by Rebecca Stevens RN; used for procedure; 8:16:33 Lidocaine 2% 20ml vial added to field was administered by Jj Marte MD; for local anesthetic; 8:16:39 Heparin Flush Bag (1000units/500ml NS) 2 bags added to field was administered by Jj Marte MD; used for procedure; 8:16:46 0.9% NaCl 100 ml/hr I.V. was administered by Rebecca Stevens RN; Per physician; 8:16:46 Refer to Anesthesia Notes for Sedation Medications was administered by Jj Marte MD; ; 8:16:47 1) 90+ Normal kidney functon but urine findings or structural abnormalities or genetic trait point to kidney disease. 8:17:06 Maximum allowable contrast does (3.7 X eGFR X 0.75)250 ml. 8:17:10 Sedation plan: IV Moderate Sedation Medication:Versed, Fentanyl 8:17:24 Use device set Radial Dx or PCI 8:17:26 Tegaderm 4 x 4 (1626W) opened to sterile field. 8:17:27 ACIST Manifold (14967) opened to sterile field. 8:17:28 ACIST Hand Control (19363) opened to sterile field. 8:17:29 ACIST Syringe (21041) opened to sterile field. 8:17:29 Medline Cath Pack ([id number]) opened to sterile field. 8:17:30 Bag Decanter () opened to sterile field. 8:17:32 MBrace Wrist Support ([id number]) opened to sterile field. 8:17:33 SHEATH 6FR Slender (801060) opened to sterile field. 8:17:36 EMERALD Guide Wire (583-050) opened to sterile field. 8:17:57 Procedure started. 8:19:23 Local anesthetic to right radial artery with Lidocaine 2% by Jj Marte MD.INITIAL ACCESS ONLY 8:19:32 A 6 Fr Short sheath was inserted into the Right Radial artery 8:19:36 A DIAGNOSTIC Russell 110cm 5 Fr catheter (548240) was advanced over the wire and used for Procedure. 8:20:07 LV angiography performed. 8:20:10 LV gram done using CORREA 8:20:16 EF : 60 % 8:20:25 Injector settings: Ml/sec: 5, Volume: 15, 8:20:37 Lopressor 5 mg I.V. was administered by Rebecca Stevens RN; Per physician; 8:20:40 Radial Cocktail (Verapamil 2mg/Nitro 400mcg/Heparin 1500units) 1 syringe I.A. was administered by Jj Marte MD; for vasodilation; 8:20:41 LCA angiography performed. 8:21:20 RCA angiography performed. 8:21:24 Catheter exchanged over wire. 8:21:25 Heparin Bolus 4000 units I.V. was administered by Rebecca Stevens RN; used for procedure; 8:21:37 Use device set [facility] PCI 8:21:44 INFLATOR Merit BasixCompak (GB9418) opened to sterile field. 8:21:46 CHOICE PT Extra Support 182cm wire ([id number]) opened to sterile field. 8:22:43 GUIDE 6FR AR 2.0 catheter (GL9NA45) opened to sterile field. 8:22:54 6 Fr AR 2 guide catheter was inserted over the wire 8:23:01 Pre PCI Site: Kaw mRCA has 90% stenosis. 8:23:09 Choice PT XS wire advanced. 8:23:29 Wire advanced across lesion. 8:24:00 Place stent Inflation Number: 1 A COBRA RX 3.5 X 15 Stent was prepped and advanced across the Mid RCA 90. The stent was deployed at 17 JANAE for 0:10 (min:sec) 0. 8:24:03 Integrilin (Bolus 2mg/ml) 6.8 ml I.V. was administered by Rebecca Stevens RN; for antiplatelet therapy; 8:24:22 TR BAND Standard ([id number]) opened to sterile field. 8:24:43 Stent catheter was removed intact over wire. 8::44 Wire removed. 8:24:46 Guide catheter removed. 8:27:25 Sheath removed intact; hemostasis achieved with Mechanical Compression to the Right Radial artery. 8::27 Procedure ended.(Physican Out) 8:29:17 Fluoroscopy time 01.90 minutes. 8:29:24 Flurop Dose total: 399 8::24 Fluoroscopy dose: 399 mGy 8::28 Contrast amount:Isovue 370 46ml. 8:29:30 Sharps counted by scrub and verified by R.N. 8:31:17 Insertion/operative site no bleeding no hematoma. 8:31:20 TR band inflated with 12cc of air. 8:31:29 Post Procedure Pulses reassessed and unchanged 8:31:45 Post-procedure physical assessment completed. ASA score P 5 - A moribund patient who is not expected to survive without the operation as per jJ Marte MD. 8:34:28 Post procedure rhythm: sinus tachycardia 8:34:31 Estimated blood loss: 10 ml 8:34:33 Post procedure instruction explained to patient.Patient verbalizes understanding. 8:34:33 Patient needs reinforcement of post procedure teaching. 8:34:34 Procedure and supply charges have been captured, reviewed, submitted and are correct. 8:34:47 Procedure Complication : No complications 8:41:20 Rt wrist tr band, no hematoma or bleeding noted. Pt remains asleep at this time, will continue to monitor. 8:55:11 Rt wrist tr band, no bleeding or hematoma noted. Pt remains asleep and is currently on 2 l NC and is having no resp distress. Report given to Lora on Med 2 unit, will transport pt when appropriate. 9:08:50 Rt radial tr band no bleeding or hematoma noted, pt awakens to verbal stimuli at this time. Remains ST on monitor. Will transport to Med 2. 9:09:29 Vital chart was stopped 9:09:29 See physician's report for complete and final results. 9:09:32 Report given to Med II. 9:09:37 Patient transfered to Med II with Bed. 9:09:40 Procedure ended. 9:09:40 Full Disclosure recording stopped 9:09:56 End room use (Document Last) Intervention Summary Intervention Notes Time ActionType Lesion and Equipment Action# Pressure Duration Attributes Used 8:24:00 Place stent Mid RCA COBRA RX 1 17 00:10 3.5 X 15 Stent Device Usage Item Name Manufacture Quantity Catalog Number Hospital Part Current Minimal Lot# / Charge Number Stock Stock Serial# Code Tegaderm 4 x 4 3M 1 1626W [id number] [id number] 815296 5 (1626W) ACIST Manifold Acist 1 55183 318480 918896 209658 5 (72986) Medical Systems Inc ACIST Hand Acist 1 52749 184661 603132 518127 5 Control Medical (60815) Systems Inc ACIST Syringe Acist 1 90605 942212 499441 917644 20 (64121) Medical Systems Inc Medline Cath Medline 1 [id number] 951179 72919 109791 5 Pack ([id number]) Bag Decanter Microtek 1 2001S 440324 20360 718017 5 (2001S) Medical Inc. MBrace Wrist Advanced 1 140-0250-00 457972 85047 913686 5 Support Vascular ([id number]) Dynamics SHEATH 6FR Terumo 1 [id number] 936242 331374 734844 5 Slender (80-1060) EMERALD Guide Cardinal 1 502-455 923483 483104 587548 5 Wire (502-455) Health DIAGNOSTIC Terumo 1 405013 135627 838832 951440 5 Russell 110cm 5 Fr catheter (859838) INFLATOR Merit Merit 1 [id number] 163172 692966 381067 15 [facility] Medical ([id number]) CHOICE PT [place] 1 [id number] 575275 631440 395854 5 Extra Support Scientific 182cm wire ([id number]) GUIDE 6FR AR Medtronic 1 [id number] 059224 97464 928356 1 2.0 catheter ([id number]) COBRA RX 3.5 X Celonova 1 [id number] 139374 [id number] 5367635 7 [id number] 15 stent Biosciences ([id number]) TR BAND Terumo 1 [id number] 306948 719593 651786 40 Standard ([id number]) Signature Audit Chancellor Stage Time Signature Unsigned Intra-Procedure 11/05/2018 Darian Chin 9:10:09 AM RT(R) Signatures Monitor : Darian Chin RT Signature : Date : Time : [address] [address] [place] [address]
[~2018-11-05 07:10] MED LIST changes: +BUSPAR10 MG PO; +KENALOG 0.1 % 115 GM TOPICAL; +LEXAPRO20 MG PO; +ZOVIRAX800 MG PO
[2018-11-05 08:02] LABS: HEMATOCRIT 44.5 % (42.0-54.0); HEMOGLOBIN 15.3 g/dL (13.5-17.5); MCH 32.2 pg (26.0-34.0); MCHC 34.4 g/dL (31.0-37.0); MCV 93.7 fL (80.0-100.0); PLATELET COUNT 214 10x3/uL (130-400); RBC 4.75 10x6/uL (4.20-6.10); RDW 14.5 % (11.5-14.5); WBC 25.2 10x3/uL (4.8-10.8)
[2018-11-05 08:36] LABS: INR 1.12 (0.85-1.17); PROTIME 13.9 SECONDS (11.6-15.0)
--- NOTE | 2018-11-05 09:28 | NUR ---
RECEIVED FROM PRINT SUPPORT SPECIALIST WITH TR BAND INTACT TO RIGHT WRIST. BALLOON AIRED UP. HE IS SEDATED BUT DOES AROUSE WHEN TOUCHED, RESP EVEN WITHOUT LABOR. VSS. O2 SAT ON R/A IS 98%. BBS ARE CLEAR. SALINE LOCK TO TOP OF LEFT HAND AND RIGHT A/C INTACT. HEART MONITOR ON WITH SR WITH ST ELEVATION WITH RATE OF 100. SAFETY PRECAUTIONS IN PLACE AND PLAN OF CARE INITIATED. HE WAKES UP FOR FEW SECONDS AND YELLS AND THEN GOES BACK TO SLEEP. CL IN REACH.
[2018-11-05 10:45] LABS: LYMPHOCYTES 22 % (15-50); MONOCYTES 6 % (2-11); NEUTROPHILS 72 % (40-80)
[2018-11-05 10:46] LABS: PLATELET ESTIMATE NORMAL
[2018-11-05] MEDS ORDERED: SEROQUEL25 MG PO (10:59)
[2018-11-05] MEDS ORDERED: MOBIC7.5 MG PO (11:01)
[2018-11-05 11:05] VITALS: BP 108/68; BMI 24.2
[2018-11-05 11:15] LABS: ALBUMIN 1.6 g/dL (3.4-5.0); BILIRUBIN - TOTAL 1.13 mg/dL (0.2-1.3); CARBON DIOXIDE 23.3 mmol/L (21.0-32.0); CREATININE - SERUM 7.5 mg/dL (0.6-1.3); POTASSIUM - SERUM 4.3 mmol/L (3.5-5.1); PROTEIN - SERUM 4.5 g/dL (6.4-8.2)
[2018-11-05 11:24] LABS: TROPONIN-I 0.053 ng/mL (0.000-0.060)
[2018-11-05 11:32] LABS: CALCIUM 6.9 mg/dL (8.5-10.1)
--- NOTE | 2018-11-05 11:52 | NUR ---
NEW ORDER GIVEN FROM LAYLA SNOWDEN FOR BUSPAR LIBRUIM AND SEROQUEL DUE TO HE HAS WOKEN UP AND IS PULLING AT HEART MONITOR SCREAMING AT TOP OF LUNGS HELP THERE ARE BUGS IN HERE. HE IS PULLING AT HIS BED SHEETS AND UNABLE TO REDIRECT. SITE TO RIGHT WRIST TR BAND IS INTACT AND SITE IS CLEAR WITH NO BLEEDING, BRUISING OR HEMATOMA NOTED. HE DID TAKE MEDICINE BUT STATES I THINK THIS IS POISON AND YOU ARE TRYING TO KILL ME. I HAVE BEEN SPEAKING IN LOW AND REASSURRING TONE OF VOICE IN ATTEMPT TO TRY AND CALM HIM NOW.
--- NOTE | 2018-11-05 12:12 | NUR ---
PT IS ORIENTATED TO PLACE, TIME, DATE. DOES KNOW HIS BIRTHDATE. SUICICE RISK SCREEN DONE AND PT SAYS HE IS SUICIDAL. IN THE LAST MONTH, HE HAS HAD THOUGHTS OF KILLING HIMSELF. OPERATIONS RESEARCH DIRECTOR CALLED FOR SR. CARE TO DO EVALS. DR. LUKE ON UNIT AND NOTIFIED. ALL ITEMS REMOVED FROM ROOM THAT PT COULD DO HARM TO HIMSELF. PT SAYS HIS HOME HAS BUGS, SPIDERS AND SNAKES. REASSURING PT THAT NO CREATURES ARE IN THE ROOM WITH HIM. THIS CATALYTIC CONVERTER OPERATOR HELPER IS STAYING WITH PT UNTIL SR. CARE ARRIVES.
[2018-11-05 12:55] VITALS: BP 113/61
--- NOTE | 2018-11-05 13:30 | NUR ---
JENNY FROM [facility] IS HERE FOR EVAL. AT THIS TIME. HE HAS BEEN ONE ON ONE SINCE ADMITTING TO SUICIDAL THOUGHTS. HIS SITE TO RIGHT WRIST REMAINS CLEAN AND INTACT.
--- NOTE | 2018-11-05 13:56 | NUR ---
DR MASSEY NOTIFIED AND SITTER ORDERED. SITTER AT BEDSIDE. NOTIFIED CHARGE NURSE AND ATTENDING IN REGARDS TO ASSESSMENT FINDINGS. RESOURCES GIVEN TO PATIENT AND SAFETY PLAN INITIATED.
--- NOTE | 2018-11-05 15:15 | NUR ---
RIGHT WRIST SITE REMAINS CLEAR WITH NO BLEEDING, BRUISING OR HEMATOMA NOTED. SITTER REMAINS IN ROOM. SLOWLY RELEASING AIR FROM BALLOON.
--- NOTE | 2018-11-05 15:17 | NUR ---
REFUSES TO WEAR SCD'S WITH BENEFITS EXPLAINED TO HIM.
--- NOTE | 2018-11-05 16:13 | NUR ---
PSYCHIATRIST HERE FOR VISIT STATED WHEN HE GETS MEDICALLY STABLE HE WILL SEND HIM FOR MENTAL HELP LIKE MAYBE BRIDGEWAY. HE DENIES DRUG USE STATES MY HOUSE IS COVERED IN SPIDERS AND I HAVE PROOF. DR STATED HE WOULD REVIEW MEDS AND GET HIM ON SOMETHING TO HELP WITH SCIZOPHRENIA
--- NOTE | 2018-11-05 17:30 | NUR ---
REPORT RECIEVED AND ROUNDING COMPLETE. PATIENT SITTING IN HIS CHAIR. PATIENT HAS 1 ON 1 WITH [facility]IN[facility]. PATIENT IS SCREAMING ABOUT BUGS ALL OVER HIM. WILL CHECK PRN MEDICATION TO SEE IS ANYTHING TO HELP.
[2018-11-05 20:00] VITALS: BP 119/78
--- NOTE | 2018-11-05 20:15 | NUR ---
RECHECKED PATIENT AFTER GIVING SHOT OF HALDOL. PATIENT IS LAYING IN BED EYES CLOSED BREATHING EVEN AND UNLABORED, CALL LIGHT WITHIN REACH AND BED IN LOWEST POSITION.
--- NOTE | 2018-11-05 23:06 | NUR ---
PT CONTINUES DENIES SUICIDALIDEATION. SITTER AT BEDSIDE FOR LINE OF SIGHT OBSERVATION.
[2018-11-06] VITALS: BP 92/63
--- NOTE | 2018-11-06 00:18 | NUR ---
I have reviewed this patient and I concur with the Shift Assessment completed by the Licensed Practical Nurse today this shift.
--- NOTE | 2018-11-06 01:45 | NUR ---
I have reviewed this patient and I concur with the Shift Assessment completed by the Licensed Practical Nurse today this shift.
[2018-11-06 04:00] VITALS: BP 127/59
[2018-11-06 06:12] LABS: BASOPHILS 0.2 % (0-2); EOSINOPHILS 0.3 % (0-7); HEMATOCRIT 40.3 % (42.0-54.0); HEMOGLOBIN 13.5 g/dL (13.5-17.5); IMMATURE GRANULOCYTES 0.2 % (0-5); LYMPHOCYTES 15.9 % (15-50); MCH 31.8 pg (26.0-34.0); MCHC 33.5 g/dL (31.0-37.0); MEAN PLATELET VOLUME 10.8 fL (7.4-10.4); MONOCYTES 7.8 % (2-11); NEUTROPHILS 75.6 % (40-80); RBC 4.24 10x6/uL (4.20-6.10); RDW 14.4 % (11.5-14.5)
[2018-11-06 06:20] LABS: PLATELET COUNT 152 10x3/uL (130-400); WBC 16.4 10x3/uL (4.8-10.8)
[2018-11-06 06:35] LABS: BILIRUBIN - TOTAL 1.03 mg/dL (0.2-1.3); CALCIUM 7.7 mg/dL (8.5-10.1); CARBON DIOXIDE 18.7 mmol/L (21.0-32.0); CREATININE - SERUM 7.2 mg/dL (0.6-1.3); MAGNESIUM - SERUM 3.3 mg/dL (1.8-2.4)
--- NOTE | 2018-11-06 06:46 | NUR ---
PT CONTINUES TO DENY SUICIDAL IDEATION. SITTER AT BEDSIDE FOR CONTINUED LINE OF SIGHT OBSERVATION.
[2018-11-06 06:51] LABS: ANION GAP 21.6 mmol/L (8-16); POTASSIUM - SERUM 5.3 mmol/L (3.5-5.1); PROTEIN - SERUM 7.2 g/dL (6.4-8.2)
[2018-11-06 06:52] LABS: ALBUMIN 3.4 g/dL (3.4-5.0)
--- NOTE | 2018-11-06 08:04 | NUR ---
PT IS SLEEPING. SITTER AT BEDSIDE.
[2018-11-06 08:55] VITALS: BP 98/72
[2018-11-06 09:58] VITALS: Ht 167.6 cm; Wt 78.6 kg
[2018-11-06 12:35] VITALS: BP 111/73
--- NOTE | 2018-11-06 14:30 | CN ---
PATIENT NAME:SHERMAN HAYDEN V MEDICAL RECORD: [id number] : 68 LOCATION:[facility] D.2122 ADMIT DATE: 11/05/18 ACCOUNT: [id number] CONSULTING PHYSICIAN: DAWOOD MASSEY MD REFERRING PHYSICIAN: RADHA LUKE MD DATE OF CONSULTATION: 11/05/2018 IDENTIFYING DATA: The patient is 48 years old and he is admitted to the hospital on a voluntary basis. CHIEF COMPLAINT: Psychosis. HISTORY OF PRESENT ILLNESS: The patient presents to the hospital psychotic and delusional. He is very upset and believes there are snakes in his toilet and bugs in his house. He is also having auditory hallucinations in addition to these visual ones. He made numerous statements about wanting to kill himself to at least 4 different staff members since he has been here. He currently is with a sitter. He is endorsing numerous psychotic symptoms and depressive symptoms. MENTAL STATUS EXAMINATION: The patient is awake; alert; and oriented to person, place, time, and somewhat to situation. His mood is flat. His affect is constricted. Thought processes are circumstantial. Memory, concentration, and abstraction abilities are impaired. He endorses suicidal thoughts as well as auditory and visual hallucinations. ASSESSMENT: Schizophrenia, chronic, undifferentiated. PLAN: The patient is in need of inpatient psychiatric care. Apparently, he had a minor HI and a stent was placed today. When he is considered medically stable, he should be discharged to inpatient psychiatric care. He was here one month ago with very similar psychotic symptoms. At that time, he was sent from our facility to the [facility] in [place]. That was only 11 days ago. I am not sure when or how long he has been released. He does not seem to be able to tell me. He says he has been taking his medicine. He says he has not been taking any drugs and the urine drug screen is currently pending for some reason I cannot explain. At any rate, please transfer him to inpatient psychiatric care once medically stabilized. I am going to make adjustments in his current psychotropic medication regimen. He should continue with a sitter until he is discharged. TRANSINT:[id number] Voice Confirmation ID: [id number] DOCUMENT ID: [id number] DAWOOD MASSEY MD at 1430 CC: [id number] DICTATION DATE: 11/05/18 1630 SILK SCREEN PROCESSOR: 11/05/182037 ADM IN [facility] [address] [id number]
[2018-11-06 15:11] VITALS: BP 115/71
--- NOTE | 2018-11-06 15:26 | NUR ---
PT REFUSES DOUGLAS
--- NOTE | 2018-11-06 15:58 | NUR ---
PT ASLEEP AT PRESENT. SITTER AT BEDSIDE.
--- NOTE | 2018-11-06 19:23 | NUR ---
PT UP TO RESTROOM AND BACK TO BED. ALARM ON AND ACTIVE. SITTER IN [address] WAY. PT HAS NO S/S OF DISTRESS. SODIUM BICARB INFUSING ORDERED. NAME AND DATE PLACED ON BOARD. WILL CPOC
[2018-11-06 20:00] VITALS: BP 108/74; BP 121/65
--- NOTE | 2018-11-06 21:03 | NUR ---
PT MOTHER AND FATHER CALLED. PT STATES HE IS TO TIRED TO TALK ON THE PHONE. ASKED PT IF HE WANTS HIS MOTHER OR FATHER TO HAVE ANY INFORMATION. PT STATES NO. MOTHER AMOL LOPEZ LEFT NUMBER IF IT IS NEEDED. [phone] FATHER SHERMAN HAYDEN [phone] NO INFORMATION GIVEN TO MOTHER OR FATHER. PT NIGHT MEDICATIONS GIVEN AND GOWN CHANGED, APPLE JUICE PROVIDED. PT IS ALERT TO NAME AND , PLACE AND YEAR. UPDATED ON SITUATION. PT SODIUM BICARB INFUSING ORDERED. PT STATES NO, HE DOESNT WANT TO HARM HIS SELF OR OTHERS. SITTER IN HALLWAY. RIGHT WRIST NO HEMATOMA, SOFT. WILL CPOC
[2018-11-07] VITALS: BP 102/65
--- NOTE | 2018-11-07 02:00 | NUR ---
URINE COLLECTED AND SENT TO LAB. PT HAS NO S/S OF DISTRESS. DENIES ANY NEEDS. PT BED LOW AND CALL LIGHT IN REACH. SITTER WATCHING PT. PT COMPLIANT. WILL CPOC
[2018-11-07 02:25] LABS: UDS - AMPHET POSITIVE QUAL (NEGATIVE); UDS - BARB NEGATIVE QUAL (NEGATIVE); UDS - BENZO POSITIVE QUAL (NEGATIVE); UDS - COCAINE NEGATIVE QUAL (NEGATIVE); UDS - OPIATE NEGATIVE QUAL (NEGATIVE); UDS - PCP NEGATIVE QUAL (NEGATIVE); UDS - THC NEGATIVE QUAL (NEGATIVE)
[2018-11-07 02:43] LABS: APPEARANCE CLEAR (CLEAR); BILIRUBIN NEGATIVE (NEGATIVE); COLOR YELLOW (YELLOW); GLUCOSE 100 mg/dL (NEGATIVE); KETONE NEGATIVE (NEGATIVE); NITRITE NEGATIVE (NEGATIVE); PROTEIN 1+ mg/dL (NEGATIVE); SPECIFIC GRAVITY 1.015 (1.005-1.020); UROBILINOGEN NORMAL (NORMAL)
[2018-11-07 02:44] LABS: BACTERIA FEW /hpf (NONE SEEN); EPITHELIAL CELLS 0-5 /hpf (0-5); RED CELLS - URINE 0-5 /hpf (0-5); WHITE CELLS - URINE 0-5 /hpf (0-5)
[2018-11-07 05:08] LABS: BASOPHILS 0.3 % (0-2); EOSINOPHILS 1.1 % (0-7); HEMATOCRIT 34.8 % (42.0-54.0); HEMOGLOBIN 12.1 g/dL (13.5-17.5); IMMATURE GRANULOCYTES 0.1 % (0-5); LYMPHOCYTES 19.1 % (15-50); MCH 32.2 pg (26.0-34.0); MCHC 34.8 g/dL (31.0-37.0); MEAN PLATELET VOLUME 10.1 fL (7.4-10.4); MONOCYTES 7.6 % (2-11); NEUTROPHILS 71.8 % (40-80); PLATELET COUNT 131 10x3/uL (130-400); RBC 3.76 10x6/uL (4.20-6.10); RDW 13.6 % (11.5-14.5)
[2018-11-07 05:22] LABS: MCV 92.6 fL (80.0-100.0); WBC 9.9 10x3/uL (4.8-10.8)
[2018-11-07 06:01] LABS: ALBUMIN 2.7 g/dL (3.4-5.0); BILIRUBIN - TOTAL 0.54 mg/dL (0.2-1.3); CARBON DIOXIDE 21.5 mmol/L (21.0-32.0); CREATININE - SERUM 6.9 mg/dL (0.6-1.3); MAGNESIUM - SERUM 2.8 mg/dL (1.8-2.4); PROTEIN - SERUM 6.1 g/dL (6.4-8.2)
[2018-11-07 06:06] LABS: ANION GAP 19.4 mmol/L (8-16); POTASSIUM - SERUM 3.9 mmol/L (3.5-5.1)
[2018-11-07 06:07] LABS: CALCIUM 6.9 mg/dL (8.5-10.1)
[2018-11-07 06:49] VITALS: BP 106/72
--- NOTE | 2018-11-07 08:01 | NUR ---
REPORT RECEIVED. WILL CONTINUE WITH POC. PT CURRENTLY LYING ON RIGHT SIDE. CALL LIGHT W/I REACH. PT IS RESTING AT THIS TIME. SITTER AT BEDSIDE. RR EVEN AND UNLABORED ON RA. SODIUM BICARB INFUSING @125ML/HR VIA R.AC PIV. NO S/S OF DISTRESS NOTED. PT DENIES ANY NEEDS. WILL CTM.
[2018-11-07 08:41] VITALS: BP 115/83
[2018-11-07 12:42] VITALS: BP 106/63
--- NOTE | 2018-11-07 15:13 | NUR ---
I have reviewed this patient and I concur with the Shift Assessment completed by the Licensed Practical Nurse today this shift.
--- NOTE | 2018-11-07 16:17 | NUR ---
PT RESTING LYING ON RIGHT SIDE. PT HAS BEEN CALM AND COOPERATIVE ALL DAY. NO OUTBURST, DELUSIONS, HALLUCINATIONS, OR EPISODES NOTED. PT DENIES ANY NEEDS AT THIS TIME. SITTER AT BEDSIDE. WILL CTM.
--- NOTE | 2018-11-07 17:34 | NUR ---
PT DENIES SI AT THIS TIME. SITTER PRESENT PER ORDER. WILL CPOC.
[2018-11-07 18:15] VITALS: BP 120/77
--- NOTE | 2018-11-07 18:40 | NUR ---
PT FOWLERS. RR UNLABORED AND EVEN. PIV SLOCKED. PT DENIES ANY NEEDS AT THIS TIME. WILL CONT WITH POC.
--- NOTE | 2018-11-07 19:12 | NUR ---
BED SIDE REPORT RECEIVED. PT LAYING IN BED. NO S/S OF DISTRESS. BED LOW AND CALL LIGHT IN REACH. NAME AND DATE PLACED ON BOARD. SITTER AT BED SIDE. WILL CPOC
--- NOTE | 2018-11-07 19:20 | NUR ---
PT DENIES SI AT THIS TIME. SITTER PRESENT PER ORDER. WILL CPOC.
[2018-11-07 20:00] VITALS: BP 120/76
--- NOTE | 2018-11-07 21:10 | NUR ---
NIGHT TIME MEDS GIVEN PER ORDER. PT ALERT AND ORIENTED TO TIME, PERSON, AND SITUATION, REORIENTED TO PLACE. DENIES SUICIDAL IDEATIONS AND THOUGHTS OF WANTING TO HARM OTHERS. BED IN LOWEST POSITION, SR X2, CALL LIGHT WITHIN REACH. DENIES NEEDS AT THIS TIME. WILL CONTINUE WITH POC.
--- NOTE | 2018-11-07 22:21 | NUR ---
nicoderm patch placed on left upper shoulder.
--- NOTE | 2018-11-07 22:53 | NUR ---
LEADS FIXED ON MONITOR. PT LAYING ON RIGHT SIDE. EYES CLOSED. AROUSES TO VERBAL STIMULI. PT COMPLIANT. DENIES ANY NEEDS. STATES NO WHEN ASKED IF HE WANTS TO HARM HIM SELF OR OTHERS. PT STATES HE NEVER WANTED TO HARM HIM SELF. PT HAS NO S/S OF DISTRESS. BED LOW AND CALL LIGHT IN REACH. WILL CPOC
[2018-11-08] VITALS: BP 116/75
--- NOTE | 2018-11-08 03:31 | NUR ---
PT ASLEEP. NO S/S OF DISTRESS. SITTER AT BEDSIDE. WILL CPOC
[2018-11-08 04:00] VITALS: BP 111/78
[2018-11-08 06:40] LABS: BASOPHILS 0.1 % (0-2); EOSINOPHILS 1.2 % (0-7); HEMATOCRIT 35.5 % (42.0-54.0); HEMOGLOBIN 12.3 g/dL (13.5-17.5); IMMATURE GRANULOCYTES 0.1 % (0-5); MCH 31.8 pg (26.0-34.0); MCHC 34.6 g/dL (31.0-37.0); MCV 91.7 fL (80.0-100.0); MEAN PLATELET VOLUME 10.8 fL (7.4-10.4); NEUTROPHILS 71.6 % (40-80); PLATELET COUNT 142 10x3/uL (130-400); RBC 3.87 10x6/uL (4.20-6.10); RDW 13.5 % (11.5-14.5)
[2018-11-08 06:46] LABS: WBC 6.9 10x3/uL (4.8-10.8)
[2018-11-08 07:05] LABS: ALBUMIN 2.8 g/dL (3.4-5.0); ANION GAP 15.9 mmol/L (8-16); BILIRUBIN - TOTAL 0.41 mg/dL (0.2-1.3); CALCIUM 7.5 mg/dL (8.5-10.1); CREATININE - SERUM 6.2 mg/dL (0.6-1.3); MAGNESIUM - SERUM 2.8 mg/dL (1.8-2.4); POTASSIUM - SERUM 3.9 mmol/L (3.5-5.1); PROTEIN - SERUM 6.8 g/dL (6.4-8.2)
--- NOTE | 2018-11-08 07:39 | NUR ---
RECEIVED BEDSIDE SHIFT REPORT FROM NIGHT NURSE. SITTER FROM CARE WITH PT. NOW PT SAYS HE IS NOT SUICIDAL. PT IS IN NO DISTRESS. WILL CONTINUE TO MONITOR.
[2018-11-08 08:03] VITALS: BP 121/76
--- NOTE | 2018-11-08 10:13 | NUR ---
PT STATES HE WANTS TO BE CONFIDENTAL. ADMISSIONS NOTIFIED AND WILL MAKE HIM THIS WAY.
[2018-11-08 12:06] VITALS: BP 127/68
--- NOTE | 2018-11-08 13:25 | PN ---
PATIENT:SHERAMN HAYDEN V MEDICAL RECORD: [id number] LOCATION:D.[facility].212 ADMISSION DATE: 11/05/18 PROGRESS NOTE DATE OF SERVICE: 11/07/2018 SUBJECTIVE: The patient's case was discussed with staff. He has no new complaint. OBJECTIVE: The patient continues to be in poor contact with reality. He now denies that he wants to hurt himself, but he is so disorganized, I am uncomfortable with discontinuing the sitter. He still has bizarre delusions. ASSESSMENT: Schizophrenia. PLAN: The patient should be continued with a sitter. If he is medically stable, he should be transferred to acute inpatient psychiatric care. TRANSINT:[id number] Voice Confirmation ID: [id number] DOCUMENT ID: [id number] DAWOOD MASSEY MD at 1325 CC: [id number] DICTATION DATE: 11/07/18 1304 FIREBOAT OPERATOR: 11/07/18 1328 ADM IN [address] [place] [address]
[2018-11-08 16:08] LABS: HEPATITIS C ANTIBODY >11.0 S/CO RAT (0.0-0.9)
--- NOTE | 2018-11-08 16:09 | NUR ---
NOW PT HAS DECIDED TO NOT TO BE CONFIDENTIAL. BUT DOES WANT A PASSWORD. A PASSWORD OF [id number] HAS BEEN ESTABLISHED WITH PT AND HIS MOTHER. WILL CALL ADMISSIONS TO RECEDE CONFIDENTIAL STATUS.
--- NOTE | 2018-11-08 16:41 | NUR ---
spoke with dr. honeycutt. sitter can be discontinued since pt is not longer suicidal. informed maria del rosario bianchi.
[2018-11-08 19:13] VITALS: BP 118/59
--- NOTE | 2018-11-08 19:36 | NUR ---
RESUMING PATIENT CARE. PATIENT IS ALERT AND ORIENTED, RESTING COMFORTABLY IN BED. RESPIRATIONS ARE EVEN AND UNLABORED. NO S/S OF DISTRESS. NO C/O PAIN. CALL LIGHT WITHIN REACH. WILL CPOC.
[2018-11-08 20:00] VITALS: BP 134/73
--- NOTE | 2018-11-09 03:39 | NUR ---
PATIENT RESTING COMFORTABLY IN BED. RESPIRATIONS ARE EVEN AND UNLABORED. NO S/S OF DISTRESS. CALL LIGHT WITHIN REACH. WILL CPOC.
[2018-11-09 04:00] VITALS: BP 114/80
[2018-11-09 06:13] LABS: BASOPHILS 0.4 % (0-2); EOSINOPHILS 2.7 % (0-7); HEMOGLOBIN 13.2 g/dL (13.5-17.5); IMMATURE GRANULOCYTES 0.3 % (0-5); LYMPHOCYTES 23.4 % (15-50); MCH 32.4 pg (26.0-34.0); MCHC 34.7 g/dL (31.0-37.0); MCV 93.4 fL (80.0-100.0); MEAN PLATELET VOLUME 10.8 fL (7.4-10.4); MONOCYTES 8.4 % (2-11); NEUTROPHILS 64.8 % (40-80); PLATELET COUNT 151 10x3/uL (130-400); RBC 4.07 10x6/uL (4.20-6.10); RDW 13.5 % (11.5-14.5); WBC 6.7 10x3/uL (4.8-10.8)
[2018-11-09 06:34] LABS: ALBUMIN 2.9 g/dL (3.4-5.0); ANION GAP 14.4 mmol/L (8-16); BILIRUBIN - TOTAL 0.31 mg/dL (0.2-1.3); CALCIUM 7.9 mg/dL (8.5-10.1); CARBON DIOXIDE 25.8 mmol/L (21.0-32.0); MAGNESIUM - SERUM 2.5 mg/dL (1.8-2.4); POTASSIUM - SERUM 4.2 mmol/L (3.5-5.1); PROTEIN - SERUM 7.1 g/dL (6.4-8.2)
[2018-11-09 08:08] VITALS: BP 124/81
--- NOTE | 2018-11-09 09:51 | NUR ---
I have reviewed this patient and I concur with the Shift Assessment completed by the Licensed Practical Nurse today this shift.
[2018-11-09 12:29] VITALS: BP 102/70
--- NOTE | 2018-11-09 15:57 | MORECARE ---
CASE MANAGEMENT DISCHARGE SUMMARY PATIENT: SHERMAN HAYDEN V UNIT: [id number] ADM DATE: 11/05/18 AGE: 48 : 68 SEX: M ROOM/BED: D.[facility] AUTHOR: LEONARDO WARE PHYSICIAN: REFERRING PHYSICIAN: RADHA LUKE MD DATE OF SERVICE: 11/09/18 Discharge Plan Patient Name: SHERMAN HAYDEN [facility] [facility] 1970 Planned Disposition: Psych facility Anticipated Discharge Date: 11/09/18 Discharge Date: Expected LOS: 4 Initial Reviewer: [email or web address] Initial Review Date: 11/09/2018 Generated: 11/09/18 4:56 pm Patient Name: SHERMAN HAYDEN Page [id number] at 1557 All edits/amendments must be made on the electronic document DICTATION DATE: 11/09/18 155 PUBLIC RELATIONS STUDIES DIRECTOR: RAYMOND 11/09/18 155 RPT#: [id number] DC DATE: STATUS: ADM IN [facility] [address] [place] [address] END OF REPORT
--- NOTE | 2018-11-09 16:15 | MORECARE ---
CASE MANAGEMENT DISCHARGE SUMMARY PATIENT: SHERMAN HAYDEN V UNIT: [id number] ADM DATE: 11/05/18 AGE: 48 : 69 SEX: M ROOM/BED: D.2122 AUTHOR: LEONARDO WARE PHYSICIAN: REFERRING PHYSICIAN: RADHA LUKE MD DATE OF SERVICE: 11/09/18 Discharge Plan Patient Name: SHERMAN HAYDEN Facility: [facility]:[place] : 1970 Planned Disposition: Psych facility Anticipated Discharge Date: 11/09/18 Discharge Date: Expected LOS: 4 Initial Reviewer: [email or web address] Initial Review Date: 11/09/2018 Generated: 11/09/18 5:15 pm DCPIA - Discharge Planning Initial Assessment Updated by [id number]: Cruz Morales on 11/09/18 4:11 pm * Is the patient Alert and Oriented? Yes * How many steps to enter\exit or inside your home? 3 FLIGHTS * PCP DR. LACY * Pharmacy [facility] * Preadmission Environment Home Alone * ADLs Independent * Equipment None * Other Equipment NO MEDICAL EQUIPMENT PROVIDER PREFERENCE * List name and contact numbers for known caregivers / representatives who currently or will assist patient after discharge: JERONIMO LOPEZ, FATHER, AMOL LOPEZ, MOTHER, * Verbal permission to speak to the caregivers and representatives has been obtained from the patient. N/A * Community resources currently utilized Other * Please name any agencies selected above. [facility], [facility], WENT TO INTAKE LAST WEEK * Additional services required to return to the preadmission environment? Yes * Can the patient safely return to the preadmission environment? Yes * Has this patient been hospitalized within the prior 30 days at any hospital? Yes Last DP export: 11/09/18 2:56 p Patient Name: SHERMAN HAYDEN Page 73661 at 1615 All edits/amendments must be made on the electronic document DICTATION DATE: 11/09/18 1614 SERVICE OPERATIONS MANAGER: RAYMOND 11/09/18 1614 RPT#: [id number] DC DATE: STATUS: ADM IN [address] [place] [address] END OF REPORT
[2018-11-09 16:23] VITALS: BP 132/84
--- NOTE | 2018-11-09 16:25 | MORECARE ---
CASE MANAGEMENT DISCHARGE SUMMARY PATIENT: SHERMAN HAYDEN V UNIT: [id number] ADM DATE: 11/05/18 AGE: 48 : 68 SEX: M ROOM/BED: D.1747 AUTHOR: LEONARDO WARE PHYSICIAN: REFERRING PHYSICIAN: RADHA LUKE MD DATE OF SERVICE: 11/09/18 Discharge Plan Patient Name: SHERMAN HAYDEN Facility: [facility]:[place] : 1970 Planned Disposition: Psych facility Anticipated Discharge Date: 11/09/18 Discharge Date: Expected LOS: 4 Initial Reviewer: [email or web address] Initial Review Date: 11/09/2018 Generated: 11/09/18 5:24 pm Comments DCP- Discharge Planning Updated by [email or web address]: Cruz Morales on 11/09/18 3:[address] Patient Name: SHERMAN HAYDEN Encounter No: [id number] : 1970 Primary Insurance: [facility] MEDICARE SOLUTIONS Anticipated DC Date: 11-09-2018 Planned Disposition: Psych facility External Planned Provider: TO BE DETERMINED DCP follow-up note: CM RECIEVED NOTICE THAT PT WAS STABLE FOR DISCHARGE TO INPATIENT PSYCHIATRIC FACILITY. CM MET WITH PT IN ROOM TO DISCUSS DISCHARGE NEEDS AND PLANNING. PT REPORTS LIVING ALONE AND INDEPENDENTLY. PT HAS NO MEDICAL EQUIPMENT AND NO OUTSIDE SERVICES ASSISTING IN THE HOME. PT REPORTS HE HAS DONE THE INTAKE AT [facility] IN [place] BUT HAS NOT YET SEEN A PSYCHIATRIST. PT REPORTS TAKING PRESCRIBED MEDICATIONS PRESCRIBED. PT ALSO REPORTS DRINKING BEER AT HOME. PT STATES HE HAS BEEN OUT OF [facility] FOR ABOUT 2 WEEKS AND THAT HE IS HERE BECAUSE THERE ARE BUGS IN HIS APARTMENT. PT STATES HE IS NOT HALLUCINATING THEM, THEY ARE REAL. PT STATES THERE ARE NO BUGS IN THE ROOM WITH US NOW. PT DENIES HOMICIDAL OR SUICIDAL IDEATIONS. PT STATES HE FEELS LIKE HE IS DOING OK BUT IF THE DOCTOR SAYS HE NEEDS TO GO BACK TO PSYCHIATRIC FACILITY, HE WILL GO AND HOPES HE CAN STAY FOR MORE THAN ONE WEEK BECAUSE THAT IS ALL THEY DID AT [facility] THE LAST TIME. PT REPORTS HIS PARENTS PICKED HIM UP FOR TRANSPORT HOME LAST TIME AND HE THINKS THEY WILL THIS TIME ALSO. PT PROVIDED NAMES AND PHONE NUMBERS TO HIS PARENTS TO CALL "ONLY IN AN EMERGENCY". RN CM HOUSE NOTIFIED [facility], ; OF NEED FOR INPATIENT PSYCHIATRIC TRANSFER. RN CM HOUSE LATER RECEIVED CALL THAT THE [facility] WOULD ACCEPT PT. ACCEPTING DOCTOR IS DR. HERMES TAYLOR, NUMBER FOR NURSE REPORT IS [phone]. BEDSIDE NURSE NOTIFIED. BEDSIDE NURSE LATER NOTIFIED CM THAT THE [facility] WILL NOT ACCEPT DUE TO [place] ON 11-05-18; CM CALLED [facility], , SPOKE TO XIN WHO REPORTS THEY ARE CONTINUING TO SEEK PLACEMENT AND HAVE SENT REFERRALS TO 12 INPATIENT PSYCHIATRIC FACLITIES. CM WAITING ACCEPTING INPATIENT PSYCHIATRIC FACILITY, [facility] CONTINUES TO SEEK PLACMENT. Cruz Morales, CASE MANAGEMENT DCPIA - Discharge Planning Initial Assessment Updated by [email or web address]: Cruz Morales on 11/09/18 4:11 pm * Is the patient Alert and Oriented? Yes * How many steps to enter\\exit or inside your home? 3 FLIGHTS * PCP DR. LACY * Pharmacy [facility] * Preadmission Environment Home Alone * ADLs Independent * Equipment None * Other Equipment NO MEDICAL EQUIPMENT PROVIDER PREFERENCE * List name and contact numbers for known caregivers / representatives who currently or will assist patient after discharge: JERONIMO LOPEZ, FATHER, AMOL LOPEZ, MOTHER, * Verbal permission to speak to the caregivers and representatives has been obtained from the patient. N/A * Community resources currently utilized Other * Please name any agencies selected above. [facility], [facility], WENT TO INTAKE LAST WEEK * Additional services required to return to the preadmission environment? Yes * Can the patient safely return to the preadmission environment? Yes * Has this patient been hospitalized within the prior 30 days at any hospital? Yes Last DP export: 11/09/18 3:15 p Patient Name: SHERMAN HAYDEN Page [id number] at 1628 All edits/amendments must be made on the electronic document DICTATION DATE: 11/09/181623 CEMENT CAR DUMPER: RAYMOND 11/09/181623 RPT#: [id number] DC DATE: STATUS: ADM IN [facility] [address] [place] [address] END OF REPORT
--- NOTE | 2018-11-09 17:11 | NUR ---
WITHOUT CHANGES OR DISTRESS NOTED AT THIS TIME.
[2018-11-09 20:00] VITALS: BP 136/85
--- NOTE | 2018-11-09 22:27 | NUR ---
INITIAL ROUNDS COMPLETED AT 1915 HRS. PT RESTING WITH EYES CLOSED. RESP EVEN AND REGULAR. ASSESSMENT COMPLETED AT 1999 HRS. VSS. ALERT AND ORIENTED TO PERSON, PLACE AND TIME. BONILLA. NO IV. LUNGS CTA. R WRIST CLEAN, DRY AND INTACT. PM MEDS GIVEN. PT CURRENTLY RESTING WITH EYES CLOSED. RESP EVEN AND REGULAR. SR UP X2, CALL LIGHT WITHIN REACH.
[2018-11-10] VITALS: BP 121/80
--- NOTE | 2018-11-10 00:42 | NUR ---
PT RESTING WITH EYES CLOSED. RESP EVEN AND REGULAR. SR UP X2, CALL LIGHT WITHIN REACH.
--- NOTE | 2018-11-10 02:24 | NUR ---
PT RESTING WITH EYES CLOSED. RESP EVEN AND REGULAR. SR UP X2, CALL LIGHT WITHIN REACH.
--- NOTE | 2018-11-10 02:28 | NUR ---
[facility] [place] ACCEPTED PT TO [place] LOCATION TO RM 608. SPOKE WITH INFORMATION SYSTEMS SUPERVISOR AT THAT LOCATION AND ASKED IF THEY WANTED THE PT TRANSFERRED TONIGHT OR IN THE AM. WAS TOLD AM WOULD BE GREAT.
--- NOTE | 2018-11-10 02:38 | NUR ---
[facility] NOTIFIED OF TX TO [place] IN AM. INFORMED WILL BE HERE AT 0900.
[2018-11-10 04:00] VITALS: BP 121/69
--- NOTE | 2018-11-10 04:34 | NUR ---
PT RESTING WITH EYES CLOSED. RESP EVEN AND REGULAR. SR UPX2, CALL LIGHT WITHIN REACH. SPOKE WITH CARMEN AT [facility] IN [place]. SHE WAS INFORMED THAT EMS WILL BE TRANSPORTING PT TO THEM AT 0900 WITH ETA APPROX 1100 HRS. ASKED ID SHE WANTED REPORT AND SHE STATED TO HAVE DAY SHIFT CALL REPORT BEFORE PT LEAVES.
[2018-11-10 05:42] LABS: BASOPHILS 0.6 % (0-2); EOSINOPHILS 3.7 % (0-7); HEMATOCRIT 39.8 % (42.0-54.0); HEMOGLOBIN 13.8 g/dL (13.5-17.5); IMMATURE GRANULOCYTES 0.1 % (0-5); LYMPHOCYTES 21.8 % (15-50); MCH 32.7 pg (26.0-34.0); MCHC 34.7 g/dL (31.0-37.0); MCV 94.3 fL (80.0-100.0); MEAN PLATELET VOLUME 10.6 fL (7.4-10.4); MONOCYTES 10.1 % (2-11); NEUTROPHILS 63.7 % (40-80); PLATELET COUNT 176 10x3/uL (130-400); RBC 4.22 10x6/uL (4.20-6.10); RDW 13.5 % (11.5-14.5); WBC 6.7 10x3/uL (4.8-10.8)
--- NOTE | 2018-11-10 06:03 | NUR ---
PT REFUSING TO SIGN AUTHORIZATION PAPERWORK TO BE TRANSFERRED TO [facility]. WHEN ASKED WHY PT STATED HE WAS NOT SUICIDAL.
[2018-11-10 06:13] LABS: ALBUMIN 3.1 g/dL (3.4-5.0); ANION GAP 14.8 mmol/L (8-16); BILIRUBIN - TOTAL 0.43 mg/dL (0.2-1.3); CALCIUM 8.5 mg/dL (8.5-10.1); CARBON DIOXIDE 26.4 mmol/L (21.0-32.0); MAGNESIUM - SERUM 2.2 mg/dL (1.8-2.4); POTASSIUM - SERUM 4.2 mmol/L (3.5-5.1); PROTEIN - SERUM 7.5 g/dL (6.4-8.2)
--- NOTE | 2018-11-10 06:15 | NUR ---
SPOKE TO PT REGARDING TX. STILL RFUSES. PT ALSO STATED HE IS NOT TAKING HIS HIV MEDS THEY ARE LOCKED UP AT HOME. PT ASKED IF ANYONE COULD GET THEM FOR HIM AND HE REPLIED NO.
[2018-11-10 06:16] LABS: CREATININE - SERUM 3.6 mg/dL (0.6-1.3)
--- NOTE | 2018-11-10 07:40 | NUR ---
ASSESSMENT COMPLETED. ALERT AND ORIENTED. TELEMERTY SHOWS SR 79. DENIES ANY NEEDS.PT HAS NO IV. TELEMERTY SHOWS SR.LUNGS CLEAR. REFUSED TO GO TO A DIFFERENT HOSPITAL. SR UP WITH CALLLIGHT IN REACH
--- NOTE | 2018-11-10 08:36 | NUR ---
Helena Calvillo fredonia superviser called to request that this nurse speak to the patient about going to an inpatient psychiatric facility in [place]. Daron Mehta Ui Software Developer and this nurse did go and speak to the patient about getting further care for his moods and hallucinations. The patient stated that no, he did not want to go. Daron and I spoke to him about feeling better with assistance. The patient declines inpatient psychiatric care at this time.
[2018-11-10 09:36] VITALS: BP 125/75
--- NOTE | 2018-11-10 09:45 | NUR ---
Spoke to Dr. Andres about the patient refusing inpatient psychiatric care. Helena Calvillo RN also present when Dr. Andres stated. "The patient is not a danger to himself or to others, therefore, he is able to go home."
--- NOTE | 2018-11-10 14:36 | NUR ---
LYING QUIETLY WITH EYES CLOSED. NO DISTRESS NOTED
--- NOTE | 2018-11-10 16:32 | MORECARE ---
CASE MANAGEMENT DISCHARGE SUMMARY PATIENT: SHERMAN HAYDEN V UNIT: [id number] ADM DATE: 11/05/18 AGE: 48 : 68 SEX: M ROOM/BED: D.0732 AUTHOR: LEONARDO WARE PHYSICIAN: REFERRING PHYSICIAN: RADHA LUKE MD DATE OF SERVICE: 11/10/18 Discharge Plan Patient Name: SHERMAN HAYDEN Facility: [facility]:[place] : 1970 Planned Disposition: Psych facility Anticipated Discharge Date: 11/09/18 Discharge Date: Expected LOS: 4 Initial Reviewer: [email or web address] Initial Review Date: 11/09/2018 Generated: 11/10/18 5:32 pm Comments DCP- Discharge Planning Updated by [email or web address]: Cheryl Jimenez on 11/10/18 3:[address] LATE ENTRY APPARENTLY THE NIGHT STAFF RECEIVED A TELEPHONE CALLED FROM [facility] IN [place] STATING THE PATIENT HAD BEEN ACCEPTED. THE DECISION WAS MADE TO NOT TRANSFERE UNTIL THE AM. THIS EARLY AM THE PATIENT DECIDED HE WAS NOT WILLING TO BE ADMITTED TO A PSYCH FACILITY. 1545 DR ROUSE AND LAYLA BRAND ROUNDED THIS AFTERNOON. THEY WERE EXPECTING A VISIT FROM THE PSYCHIATRIST REGARDING DISCHARGING PATIENT OR STRONGLY ENCOURAGING HIM TO ACCEPT THE BED. KYE SPOKE WITH THE CERTIFIED REGISTERED LOCKSMITH, SAVANNA. THE PATIENT IS NOT ON A [address] ROUSE STATES DR MASSEY SHOULD DOCUMENT A PSYCH NOTE. CERTIFIED REGISTERED LOCKSMITH SAID TO HAVE MD'S COMMUNICATE W/ ONE ANOTHER. TC TO CARE HOME. CM SPOKE W/ KRISTI. SHE WILL HAVE DR MASSEY TO CALL DR ROUSE. 1615 DR MASSEY TRANSFERED TO DR ROUSE ON MED/ SURG. DCP- Discharge Planning Updated by [id number]: Cruz Morales on 11/09/18 3:[address] Patient Name: SHERMAN HAYDEN Encounter No: [id number] : 1970 Primary Insurance: [facility] MEDICARE SOLUTIONS Anticipated DC Date: 11-09-2018 Planned Disposition: Psych facility External Planned Provider: TO BE DETERMINED DCP follow-up note: CM RECIEVED NOTICE THAT PT WAS STABLE FOR DISCHARGE TO INPATIENT PSYCHIATRIC FACILITY. CM MET WITH PT IN ROOM TO DISCUSS DISCHARGE NEEDS AND PLANNING. PT REPORTS LIVING ALONE AND INDEPENDENTLY. PT HAS NO MEDICAL EQUIPMENT AND NO OUTSIDE SERVICES ASSISTING IN THE HOME. PT REPORTS HE HAS DONE THE INTAKE AT [facility] IN [place] BUT HAS NOT YET SEEN A PSYCHIATRIST. PT REPORTS TAKING PRESCRIBED MEDICATIONS PRESCRIBED. PT ALSO REPORTS DRINKING BEER AT HOME. PT STATES HE HAS BEEN OUT OF [facility] FOR ABOUT 2 WEEKS AND THAT HE IS HERE BECAUSE THERE ARE BUGS IN HIS APARTMENT. PT STATES HE IS NOT HALLUCINATING THEM, THEY ARE REAL. PT STATES THERE ARE NO BUGS IN THE ROOM WITH US NOW. PT DENIES HOMICIDAL OR SUICIDAL IDEATIONS. PT STATES HE FEELS LIKE HE IS DOING OK BUT IF THE DOCTOR SAYS HE NEEDS TO GO BACK TO PSYCHIATRIC FACILITY, HE WILL GO AND HOPES HE CAN STAY FOR MORE THAN ONE WEEK BECAUSE THAT IS ALL THEY DID AT [facility] THE LAST TIME. PT REPORTS HIS PARENTS PICKED HIM UP FOR TRANSPORT HOME LAST TIME AND HE THINKS THEY WILL THIS TIME ALSO. PT PROVIDED NAMES AND PHONE NUMBERS TO HIS PARENTS TO CALL "ONLY IN AN EMERGENCY". RN KYE HOUSE NOTIFIED [facility], ; OF NEED FOR INPATIENT PSYCHIATRIC TRANSFER. RN KYE HOUSE LATER RECEIVED CALL THAT THE [facility] WOULD ACCEPT PT. ACCEPTING DOCTOR IS DR. HERMES TAYLOR, NUMBER FOR NURSE REPORT IS [phone]. BEDSIDE NURSE NOTIFIED. BEDSIDE NURSE LATER NOTIFIED THAT THE [facility] WILL NOT ACCEPT DUE TO [place] ON 11-05-18; CM CALLED [facility], , SPOKE TO XIN WHO REPORTS THEY ARE CONTINUING TO SEEK PLACEMENT AND HAVE SENT REFERRALS TO 12 INPATIENT PSYCHIATRIC FACLITIES. CM WAITING ACCEPTING INPATIENT PSYCHIATRIC FACILITY, [facility] CONTINUES TO SEEK PLACMENT. Cruz Morales, CASE MANAGEMENT DCPIA - Discharge Planning Initial Assessment Updated by [id number]: Cruz Morales on 11/09/18 4:11 pm * Is the patient Alert and Oriented? Yes * How many steps to enter\\exit or inside your home? 3 FLIGHTS * PCP DR. LACY * Pharmacy [facility] * Preadmission Environment Home Alone * ADLs Independent * Equipment None * Other Equipment NO MEDICAL EQUIPMENT PROVIDER PREFERENCE * List name and contact numbers for known caregivers / representatives who currently or will assist patient after discharge: JERONIMO LOPEZ, FATHER, AMOL LOPEZ, MOTHER, * Verbal permission to speak to the caregivers and representatives has been obtained from the patient. N/A * Community resources currently utilized Other * Please name any agencies selected above. [facility]PAT[facility] M[facility], [facility], WENT TO INTAKE LAST WEEK * Additional services required to return to the preadmission environment? Yes * Can the patient safely return to the preadmission environment? Yes * Has this patient been hospitalized within the prior 30 days at any hospital? Yes Last DP export: 11/09/18 3:25 p Patient Name: SHERMAN HAYDEN Page [id number] at 1632 All edits/amendments must be made on the electronic document DICTATION DATE: 11/10/18 163 UNIVERSITY INTERN: RAYMOND 11/10/18 163 RPT#: [id number] DC DATE: STATUS: ADM IN [facility] [address] [place] [address] END OF REPORT
[2018-11-10 16:45] VITALS: BP 115/77
--- NOTE | 2018-11-10 19:58 | NUR ---
INITIAL ROUNDS COMPLTED AT 1910 HRS. PT DENIES ANY DISCOMOFRT.
[2018-11-10 20:00] VITALS: BP 112/81; BP 119/86
--- NOTE | 2018-11-10 20:50 | NUR ---
SPOKE WITH PT'S MOTHER REGARDING SITUATION AND HIV MEDS AT HOME. UPDATE GIVEN. MOTHER STATED IF NOT RELEASED TOMORROW WILL BRING HIV MEDS TO PT.
--- NOTE | 2018-11-10 23:24 | NUR ---
ASSSESSMENT COMPLETED AT 1945 HRS. VSS. REFUSES TELEMETR. LUNGS CTA. HEART TONES S1 S2. BONILLA. R WRIST CLEAN, DRY AND INTACT. DENIES ANY CP . PM MEDS GIVEN PER ORDERS. PT CURRENTLY RESTING WITH EYES CLOSED. RESP EVEN AND REGULAR. SR UP X2, CALL LIGHT WITHIN REACH.
[2018-11-11] VITALS: BP 112/85; BP 137/81
--- NOTE | 2018-11-11 00:09 | NUR ---
PT RESTING WITH EYES CLOSED. RESP EVEN AND REGULAR. SR UP X2, CALL LIGHT WITHIN REACH.
--- NOTE | 2018-11-11 02:21 | NUR ---
PT RESTING WITH EYES CLOSED. RESP EVEN AND REGULAR. SR UP X2, CALL LIGHT WITHIN REACH.
--- NOTE | 2018-11-11 04:46 | NUR ---
PT RESTING WITH EYES CLOSED. RESP EVEN AND REGULAR. SR UP X2,CALL LIGHT WITHIN REACH.
[2018-11-11 05:56] LABS: BASOPHILS 0.9 % (0-2); EOSINOPHILS 5.6 % (0-7); HEMATOCRIT 39.9 % (42.0-54.0); HEMOGLOBIN 13.4 g/dL (13.5-17.5); IMMATURE GRANULOCYTES 0.2 % (0-5); LYMPHOCYTES 22.3 % (15-50); MCH 31.7 pg (26.0-34.0); MCHC 33.6 g/dL (31.0-37.0); MCV 94.3 fL (80.0-100.0); MEAN PLATELET VOLUME 10.2 fL (7.4-10.4); MONOCYTES 9.8 % (2-11); NEUTROPHILS 61.2 % (40-80); PLATELET COUNT 181 10x3/uL (130-400); RBC 4.23 10x6/uL (4.20-6.10); RDW 13.2 % (11.5-14.5); WBC 6.6 10x3/uL (4.8-10.8)
--- NOTE | 2018-11-11 05:58 | NUR ---
VSS THROUGHOUT NIGHT. PT DENIED ANY DISCOMFORT. NEEDS MET;WILL CONTINUE TO MONITOR.
[2018-11-11 06:24] LABS: ANION GAP 12.8 mmol/L (8-16); BILIRUBIN - TOTAL 0.48 mg/dL (0.2-1.3); CALCIUM 8.9 mg/dL (8.5-10.1); CARBON DIOXIDE 26.5 mmol/L (21.0-32.0); CREATININE - SERUM 2.8 mg/dL (0.6-1.3); POTASSIUM - SERUM 4.3 mmol/L (3.5-5.1); PROTEIN - SERUM 7.4 g/dL (6.4-8.2)
--- NOTE | 2018-11-11 07:48 | NUR ---
ALERT AND ORIENTED. UP IN BEDSIDE CHAIR. LUNGS CLEAR. LAB WNL. NO CHANGES . UP AB FRANC. CALL LIGHT IN EASY REACH. WILL MONITOR
--- NOTE | 2018-11-11 07:51 | NUR ---
ALERT AND ORIENTED. TELEMERTY SHOWS SR 66. O2 AT 2 L/M PRN. RIGHT WRIST SL. PAIN FREE. SR UP WITH CALL LIGHT IN REACH
[2018-11-11 09:40] VITALS: BP 102/75
--- NOTE | 2018-11-11 15:35 | NUR ---
I have reviewed this patient and I concur with the Shift Assessment completed by the Licensed Practical Nurse today this shift.
--- NOTE | 2018-11-11 15:55 | NUR ---
PT WENT AMA. DR MONTALVO AND MACHINE PIE MAKER NOTIFIED. PT MOTHER IS PICKING HIM UP AND TAKING HIM HOME.
--- NOTE | 2018-11-12 09:12 | MORECARE ---
CASE MANAGEMENT DISCHARGE SUMMARY PATIENT: SHERMAN HAYDEN V UNIT: [id number] ADM DATE: 11/05/18 AGE: 48 : 68 SEX: M ROOM/BED: D.8322 AUTHOR: LEONARDO WARE PHYSICIAN: REFERRING PHYSICIAN: RADHA LUKE MD DATE OF SERVICE: 11/12/18 Discharge Plan Patient Name: SHERMAN HAYDEN Facility: [facility]:[place] : 1970 Planned Disposition: Psych facility Anticipated Discharge Date: 11/11/18 Discharge Date: 11/11/2018 Expected LOS: 6 Initial Reviewer: [email or web address] Initial Review Date: 11/09/2018 Generated: 11/12/18 10:11 am Comments DCP- Discharge Planning Updated by [id number]: Cheryl Jimenez on 11/10/18 3:[address] LATE ENTRY APPARENTLY THE NIGHT STAFF RECEIVED A TELEPHONE CALLED FROM [facility] IN [place] STATING THE PATIENT HAD BEEN ACCEPTED. THE DECISION WAS MADE TO NOT TRANSFERE UNTIL THE AM. THIS EARLY AM THE PATIENT DECIDED HE WAS NOT WILLING TO BE ADMITTED TO A PSYCH FACILITY. 1545 DR ROUSE AND LAYLA BRAND ROUNDED THIS AFTERNOON. THEY WERE EXPECTING A VISIT FROM THE PSYCHIATRIST REGARDING DISCHARGING PATIENT OR STRONGLY ENCOURAGING HIM TO ACCEPT THE BED. KYE SPOKE WITH THE MASTER MERCHANDISER, SAVANNA. THE PATIENT IS NOT ON A [address] ROUSE STATES DR MASSEY SHOULD DOCUMENT A PSYCH NOTE. MASTER MERCHANDISER SAID TO HAVE MD'S COMMUNICATE W/ ONE ANOTHER. TC TO [facility]. KYE SPOKE W/ KRISTI. SHE WILL HAVE DR MASSEY TO CALL DR ROUSE. 1615 DR MASSEY TRANSFERED TO DR ROUSE ON MED/ SURG. DCP- Discharge Planning Updated by [id number]: Cruz Morales on 11/09/18 3:[address] Patient Name: SHERMAN HAYDEN Encounter No: [id number] : 1970 Primary Insurance: [facility] MEDICARE SOLUTIONS Anticipated DC Date: 11-09-2018 Planned Disposition: Psych facility External Planned Provider: TO BE DETERMINED DCP follow-up note: CM RECIEVED NOTICE THAT PT WAS STABLE FOR DISCHARGE TO INPATIENT PSYCHIATRIC FACILITY. CM MET WITH PT IN ROOM TO DISCUSS DISCHARGE NEEDS AND PLANNING. PT REPORTS LIVING ALONE AND INDEPENDENTLY. PT HAS NO MEDICAL EQUIPMENT AND NO OUTSIDE SERVICES ASSISTING IN THE HOME. PT REPORTS HE HAS DONE THE INTAKE AT [facility] IN [place] BUT HAS NOT YET SEEN A PSYCHIATRIST. PT REPORTS TAKING PRESCRIBED MEDICATIONS PRESCRIBED. PT ALSO REPORTS DRINKING BEER AT HOME. PT STATES HE HAS BEEN OUT OF [facility] FOR ABOUT 2 WEEKS AND THAT HE IS HERE BECAUSE THERE ARE BUGS IN HIS APARTMENT. PT STATES HE IS NOT HALLUCINATING THEM, THEY ARE REAL. PT STATES THERE ARE NO BUGS IN THE ROOM WITH US NOW. PT DENIES HOMICIDAL OR SUICIDAL IDEATIONS. PT STATES HE FEELS LIKE HE IS DOING OK BUT IF THE DOCTOR SAYS HE NEEDS TO GO BACK TO PSYCHIATRIC FACILITY, HE WILL GO AND HOPES HE CAN STAY FOR MORE THAN ONE WEEK BECAUSE THAT IS ALL THEY DID AT [facility] THE LAST TIME. PT REPORTS HIS PARENTS PICKED HIM UP FOR TRANSPORT HOME LAST TIME AND HE THINKS THEY WILL THIS TIME ALSO. PT PROVIDED NAMES AND PHONE NUMBERS TO HIS PARENTS TO CALL "ONLY IN AN EMERGENCY". RN KYE HOUSE NOTIFIED [facility], ; OF NEED FOR INPATIENT PSYCHIATRIC TRANSFER. RN KYE HOUSE LATER RECEIVED CALL THAT THE [facility] WOULD ACCEPT PT. ACCEPTING DOCTOR IS DR. HERMES TAYLOR, NUMBER FOR NURSE REPORT IS [phone]. BEDSIDE NURSE NOTIFIED. BEDSIDE NURSE LATER NOTIFIED THAT THE [facility] WILL NOT ACCEPT DUE TO [place] ON 11-05-18; CM CALLED THE [facility], , SPOKE TO XIN WHO REPORTS THEY ARE CONTINUING TO SEEK PLACEMENT AND HAVE SENT REFERRALS TO 12 INPATIENT PSYCHIATRIC FACLITIES. CM WAITING ACCEPTING INPATIENT PSYCHIATRIC FACILITY, THE [facility] CONTINUES TO SEEK PLACMENT. Cruz Morales, CASE MANAGEMENT DCPIA - Discharge Planning Initial Assessment Updated by [id number]: Cruz Morales on 11/09/18 4:11 pm * Is the patient Alert and Oriented? Yes * How many steps to enter\\exit or inside your home? 3 FLIGHTS * PCP DR. LACY * Pharmacy [facility] * Preadmission Environment Home Alone * ADLs Independent * Equipment None * Other Equipment NO MEDICAL EQUIPMENT PROVIDER PREFERENCE * List name and contact numbers for known caregivers / representatives who currently or will assist patient after discharge: JERONIMO LOPEZ, FATHER, AMOL LOPEZ, MOTHER, * Verbal permission to speak to the caregivers and representatives has been obtained from the patient. N/A * Community resources currently utilized Other * Please name any agencies selected above. [facility]PAT[facility], [facility], WENT TO INTAKE LAST WEEK * Additional services required to return to the preadmission environment? Yes * Can the patient safely return to the preadmission environment? Yes * Has this patient been hospitalized within the prior 30 days at any hospital? Yes Last DP export: 11/10/18 3:32 p Patient Name: SHERMAN HAYDEN Page [id number] at 0912 All edits/amendments must be made on the electronic document DICTATION DATE: 11/12/18910 MARBLE WORKER: RAYMOND 11/12/18910 RPT#: [id number] DC DATE:11/11/18 STATUS: DIS IN [facility] [address] [place] [address] END OF REPORT
--- NOTE | 2018-11-12 15:07 | PN ---
PATIENT:SHERMAN HAYDEN V MEDICAL RECORD: [id number] LOCATION:[address] ADMISSION DATE: 11/05/18 PROGRESS NOTE DATE OF SERVICE: 11/11/2018 SUBJECTIVE: The patient's case was discussed with staff. He is having no new complaints. OBJECTIVE: Sherman is a chronically mentally ill man. He has schizophrenia. The circumstances of his admission have been well documented through the course of this hospitalization along with my intervention, evaluation, and recommendation. The patient is no longer actively suicidal and had the sitter discontinued at least 2, perhaps 3 days ago. This patient does have ongoing chronic delusions that are primarily paranoid in nature. He was here a month ago and was sent to the [facility] and after being released began using methamphetamine and ended up being hospitalized here again this time with a myocardial infarction. The patient is no longer suicidal. His delusions are better. I did prescribe any antipsychotic medication for him. ASSESSMENT: Schizophrenia. PLAN: The patient is much calmer, much less delusional, and is not showing evidence of acute dangerousness. It is my opinion that he would benefit from an inpatient stay to make further adjustments in his medications, but he is refusing to go. It is my opinion that he no longer meets inpatient criteria for psychiatric hospitalization on an involuntary basis, which is not the same as saying he would not benefit from a stay. He refuses to go and given current structures of our mental health commitment laws, there is nothing that can be done about that. I suspect the patient will return, especially if he continues to use methamphetamine, which is a lifelong problem for him. I do recommend he continue the Haldol and Depakote as an outpatient and followup should be scheduled with the [facility]. TRANSINT:[id number] Voice Confirmation ID: [id number] DOCUMENT ID: [id number] DAWOOD MASSEY MD at 1507 CC: [id number] DICTATION DATE: 11/11/18 1225 DATA LEAD: 11/11/18 1518 DIS IN 11/11/18 [facility] [address] [place] [address]
--- NOTE | 2018-11-12 18:38 | CN ---
PATIENT NAME:SHERMAN DAWSON V MEDICAL RECORD: [id number] : 68 LOCATION:D. D.2122 ADMIT DATE: 11/05/18 ACCOUNT: [id number] CONSULTING PHYSICIAN: MICHELE SESAY MD REFERRING PHYSICIAN: RADHA LUKE MD DATE OF CONSULTATION: 11/05/2018 CARDIOLOGY CONSULT ADMITTING DIAGNOSES: 1. Acute inferior myocardial infarction. 2. Coronary artery disease. 3. Previous percutaneous transluminal coronary angioplasty stent to right coronary artery in 2009. 4. Paroxysmal atrial fibrillation. 5. Hypertension. HISTORY OF PRESENT ILLNESS: Mr. Dawson presents in an acute psychotic state, however, has been having chest pain all night. His EKG is compatible with an acute inferior myocardial infarction. He does have a history of coronary artery disease, PTCA stent of the RCA in 2009, and history of atrial fibrillation, previously on sotalol. This does not appear on his home med at this time. History of hypertension previously on amlodipine; however, this as well is not on his home med at this time. It is difficult to say what he is actually taking due to his acute psychotic state. He thinks the chest pain is secondary to bugs that are in his house on him. PHYSICAL EXAMINATION: GENERAL APPEARANCE: Well-nourished, well-developed, appears stated age. Level of distress, comfortable. PSYCHIATRIC: Mental status, alert, normal affect. Orientation, oriented to time, place and person. EYES: Lids and conjunctiva, noninjected. No discharge, no pallor. ENT: Lips, teeth, gums, normal dentition. Oropharynx, no cyanosis, no pallor. NECK: Carotid arteries, bilateral normal upstroke, no bruits, no thrills. JUGULAR VEINS: No jugular venous pressure or distention. CERVICAL LYMPH NODES: Nontender, nonenlarged. THYROID: Not enlarged. Nontender. No nodules. LUNGS: Respiratory effort, unlabored. CHEST: Normal curvature. No thoracic deformity. No chest wall tenderness. Percussion, resonant. Auscultation, clear. No wheezes, no rales, no rhonchi. CARDIOVASCULAR: Precordial exam, nondisplaced. No heaves or pericardial thrills. Rate and rhythm, regular. Heart sounds, normal S1, normal S2. No S3, no gallop, no rub. Systolic murmur, not heard. Diastolic murmur, not heard. EXTREMITIES: No cyanosis, no edema. Peripheral pulses, full and equal in all extremities, except as noted. No bruits appreciated. ABDOMEN: Soft, nondistended. Normal aorta. No bruit. Nontender. No masses. Liver, nontender, no hepatomegaly. Spleen, nontender, no splenomegaly. MUSCULOSKELETAL: No joint tenderness. No joint swelling. No erythema. NEUROLOGICAL: Normal gait, normal strength, normal tone. SKIN: Warm and dry. OVERALL IMPRESSION: Acute inferior myocardial infarction. At this time, he is diaphoretic, hypotensive. We will take him for emergent cardiac catheterization and intervention. After that, we will allow psych to evaluate him from CONSULT REPORT [id number] SHERMAN DAWSON V psychiatric standpoint. TRANSINT:[id number] Voice Confirmation ID: [id number] DOCUMENT ID: [id number] MICHELE SESAY MD at 1838 CC: [id number] DICTATION DATE: 11/05/18751 INTERLOCKING PAVEMENT INSTALLER: 11/05/18 0826 DIS IN 11/11/18 [facility] [address] [place] [address]
--- NOTE | 2018-11-12 18:38 | OP ---
PATIENT NAME: SHERMAN HAYDEN V MEDICAL RECORD: [id number] :68 LOCATION:D.M2 D.2122 ADMISSION DATE:11/05/18 SURGEON: MICHELE SESAY MD DATE OF OPERATION: 11/05/2018 PROCEDURES: 1. PTCA stent to RCA. 2. Left heart catheterization. 3. Selective coronary angiography. 4. Left ventriculogram. INDICATION: Acute inferior myocardial infarction. PROCEDURE IN DETAIL: After informed consent was obtained and after detailed description of risks, benefits as well as alternatives therapies, the patient elected to proceed with angiogram and angioplasty. The right radial area was prepped and draped in normal sterile fashion. Right radial artery was cannulated via modified Seldinger technique with placement of 6-Portuguese sheath. All catheters exchanged through this sheath. FINDINGS: Left ventriculogram was performed in standard 30-degree CORREA view reveals preserved cardiac wall motion, ejection fraction 50%. SELECTIVE CORONARY ANGIOGRAPHY: 1. Left main is with no significant angiographic disease. 2. Left anterior descending has mild irregularities, but no flow-limiting stenosis. 3. The left circumflex has mild irregularities, but no flow-limiting stenosis. 4. Right coronary has 90% stenosis in the mid vessel. PTCA STENT OF THE RCA: The stent used was a 3.5 x 15 mm Cobra. Result was 0% residual stenosis. OVERALL IMPRESSION: Successful percutaneous transluminal coronary angioplasty stent of the right coronary artery going from 90% initial stenosis to 0% residual. TRANSINT:[id number] Voice Confirmation ID: [id number] DOCUMENT ID: [id number] MICHELE SESAY MD at 1838 CC: [id number] DICTATION DATE: 11/05/1830 CONVEYOR OPERATOR: 11/05/18 0846 DIS IN 11/11/18 [place] [id number] [place] [address]
[2018-11-15] MEDS ORDERED: METOPROLOL TART50 MG PO (14:32)
[2018-11-15] MEDS ORDERED: PLAVIX75 MG PO (14:32)
[2018-11-15] MEDS ORDERED: PRAVACHOL20 MG PO (14:33)
--- NOTE | 2018-11-15 15:25 | NUR ---
LATE ENTRY: THIS PATIENT LEFT ON 11/11/18 AMA ACCORDING TO BEATA/KEVIN AND REFUSED TO WAIT FOR PHYSICIAN TO COME AND DISCHARGE OR WAIT FOR ANY MEDICATION OR INSTRUCTIONS. PER BEE/MARGOT PATIENT CAME TO ADMINISTRATION TODAY ASKING FOR THE MEDICATION THAT HE WAS TO BE SENT HOME WITH FOR CARDIAC STENTING. I WAS ASKED TO CALL THESE MEDICATIONS TO HIS PREFERRED PHARMACY. THESE MEDICATIONS WERE CALLED TO [facility]. SPOKE WITH RADHA/PHARMACIST. PRINTED DISCHARGE PAPERS FROM 11/11/18 AND PRESENTED TO MR. SCHULERCASTRO WITH MEDICATION LIST.
== END 2018-11-11 16:20 | disposition left against medical advice (07) | DRG 981 ==
LOC: D.CATH 07:10 → D.ER 07:10 → EDSTATUS 07:45 → D.M2 09:05 → D.ICU 09:05 → D.M2 09:05
PROVIDERS: Family Medicine; Family Medicine Adult Medicine; Internal Medicine Interventional Cardiology; Internal Medicine Nephrology; ADMIT Family Medicine; ATTEND Family Medicine
PROC: 02703DZ Dilation of Coronary Artery, One Artery with Intraluminal Device, Percutaneous Approach (ICD-10-PCS; principal; 2018-11-05 07:44)
PROC: 4A023N7 Measurement of Cardiac Sampling and Pressure, Left Heart, Percutaneous Approach (ICD-10-PCS; 2018-11-05 07:44)
DX: N17.0 Acute kidney failure with tubular necrosis (principal); I21.19 ST elevation (STEMI) myocardial infarction involving other coronary artery of inferior wall; G93.41 Metabolic encephalopathy; B20 Human immunodeficiency virus [HIV] disease; F20.5 Residual schizophrenia; R44.0 Auditory hallucinations; R44.1 Visual hallucinations; I48.91 Unspecified atrial fibrillation; I25.10 Atherosclerotic heart disease of native coronary artery without angina pectoris

== ENCOUNTER 2018-11-15 22:39 | Emergency (ER) | payer MEDICARE, MEDICAID ==
[~2018-11-15] VITALS: Ht 167.6 cm; Wt 77.3 kg
[~2018-11-15 22:39] MED LIST changes: +METOPROLOL TART50 MG PO; +PLAVIX75 MG PO; +PRAVACHOL20 MG PO; +SEROQUEL25 MG PO
[2018-11-15 22:41] VITALS: Ht 167.6 cm; Wt 77.3 kg
[2018-11-15 23:37] LABS: BASOPHILS 1.6 % (0-2); EOSINOPHILS 5.7 % (0-7); HEMATOCRIT 36.1 % (42.0-54.0); HEMOGLOBIN 12.5 g/dL (13.5-17.5); IMMATURE GRANULOCYTES 0.1 % (0-5); LYMPHOCYTES 41.2 % (15-50); MCH 32.4 pg (26.0-34.0); MCHC 34.6 g/dL (31.0-37.0); MCV 93.5 fL (80.0-100.0); MEAN PLATELET VOLUME 9.5 fL (7.4-10.4); MONOCYTES 7.9 % (2-11); NEUTROPHILS 43.5 % (40-80); RBC 3.86 10x6/uL (4.20-6.10); RDW 12.9 % (11.5-14.5); WBC 7.6 10x3/uL (4.8-10.8)
[2018-11-15 23:38] LABS: PLATELET COUNT 243 10x3/uL (130-400)
[2018-11-15 23:57] LABS: ALBUMIN 3.5 g/dL (3.4-5.0); ANION GAP 11.6 mmol/L (8-16); BILIRUBIN - TOTAL 0.44 mg/dL (0.2-1.3); CALCIUM 8.2 mg/dL (8.5-10.1); CARBON DIOXIDE 27.5 mmol/L (21.0-32.0); CREATININE - SERUM 1.5 mg/dL (0.6-1.3); POTASSIUM - SERUM 4.1 mmol/L (3.5-5.1); PROTEIN - SERUM 7.6 g/dL (6.4-8.2)
[2018-11-16 00:20] VITALS: BP 144/95
[2018-11-17] MEDS ORDERED: ULTRAM50 MG PO (13:07)
== END 2018-11-16 00:20 | disposition home or self-care (01) ==
LOC: D.ER 22:39
PROVIDERS: Emergency Medicine
DX: M54.5 Low back pain (principal); I25.10 Atherosclerotic heart disease of native coronary artery without angina pectoris; I12.9 Hypertensive chronic kidney disease with stage 1 through stage 4 chronic kidney disease, or unspecified chronic kidney disease; N18.9 Chronic kidney disease, unspecified; E11.9 Type 2 diabetes mellitus without complications; B20 Human immunodeficiency virus [HIV] disease

== ENCOUNTER 2018-11-17 12:02 | Emergency (ER) | payer MEDICARE, MEDICAID ==
[~2018-11-17] VITALS: Ht 167.6 cm; Wt 77.3 kg
[2018-11-17 12:09] VITALS: Ht 167.6 cm; Wt 77.3 kg
[2018-11-17 12:38] LABS: BASOPHILS 1.2 % (0-2); EOSINOPHILS 5.1 % (0-7); HEMATOCRIT 36.7 % (42.0-54.0); IMMATURE GRANULOCYTES 0.2 % (0-5); MCH 32.8 pg (26.0-34.0); MCHC 35.4 g/dL (31.0-37.0); MCV 92.7 fL (80.0-100.0); MEAN PLATELET VOLUME 9.2 fL (7.4-10.4); MONOCYTES 9.5 % (2-11); PLATELET COUNT 223 10x3/uL (130-400); RBC 3.96 10x6/uL (4.20-6.10); RDW 12.7 % (11.5-14.5); WBC 5.7 10x3/uL (4.8-10.8)
[2018-11-17 12:40] LABS: AMORPHOUS SEDIMENT <1+ /lpf (NONE SEEN); APPEARANCE CLEAR (CLEAR); BACTERIA MANY /hpf (NONE SEEN); BILIRUBIN NEGATIVE (NEGATIVE); COLOR STRAW (YELLOW); EPITHELIAL CELLS 0-5 /hpf (0-5); GLUCOSE NEGATIVE (NEGATIVE); HYALINE CAST OCC /lpf (NONE SEEN); KETONE NEGATIVE (NEGATIVE); MUCUS >1+ /lpf (NONE SEEN); NITRITE NEGATIVE (NEGATIVE); PROTEIN NEGATIVE (NEGATIVE); RED CELLS - URINE 0-5 /hpf (0-5); SPERMATOZOA RARE /hpf (NONE SEEN); UROBILINOGEN NORMAL (NORMAL); WHITE CELLS - URINE 0-5 /hpf (0-5)
[2018-11-17 12:44] LABS: APTT 29.5 SECONDS (22.8-39.4); INR 1.05 (0.85-1.17); PROTIME 13.2 SECONDS (11.6-15.0)
[2018-11-17] MEDS ORDERED: ULTRAM50 MG PO (13:07)
[2018-11-17 13:27] VITALS: BP 136/87
== END 2018-11-17 13:28 | disposition home or self-care (01) ==
LOC: D.ER 12:02
PROVIDERS: Emergency Medicine
DX: R31.9 Hematuria, unspecified (principal); R10.9 Unspecified abdominal pain

== ENCOUNTER → 2018-12-05 20:00 | Outpatient (CLI) | payer MEDICARE, MEDICAID ==
[2018-11-17 12:09] VITALS: BMI 27.5
[~2018-12-05 20:00] MED LIST changes: +ULTRAM50 MG PO
== END | disposition home or self-care (01) ==
LOC: D.LABREF 20:00
PROVIDERS: ATTEND Urology
DX: R31.9 Hematuria, unspecified (principal)

== ENCOUNTER 2018-12-23 11:36 | Emergency (ER) | payer MEDICARE, MEDICAID ==
[~2018-12-23] VITALS: Ht 167.6 cm; Wt 72.7 kg
[2018-12-23 11:50] VITALS: BP 139/92; Ht 167.6 cm; Wt 72.7 kg
[2018-12-23] MEDS ORDERED: BIKTARVY 50-201 EACH PO (12:14)
== END 2018-12-23 12:29 | disposition home or self-care (01) ==
LOC: D.ER 11:36
DX: Z76.0 Encounter for issue of repeat prescription (principal)

== ENCOUNTER 2019-04-05 01:36 | Inpatient (IN) | payer MEDICARE, MEDICAID ==
[~2019-04-05] VITALS: Ht 167.6 cm; Wt 69.1 kg
[~2019-04-05 01:36] MED LIST changes: +BIKTARVY 50-201 EACH PO
[2019-04-05 02:03] LABS: BASOPHILS 0.1 % (0-2); EOSINOPHILS 0 % (0-7); HEMATOCRIT 46.7 % (42.0-54.0); HEMOGLOBIN 16.2 g/dL (13.5-17.5); IMMATURE GRANULOCYTES 0.4 % (0-5); LYMPHOCYTES 9.4 % (15-50); MCH 33.1 pg (26.0-34.0); MCHC 34.7 g/dL (31.0-37.0); MCV 95.3 fL (80.0-100.0); MEAN PLATELET VOLUME 10.1 fL (7.4-10.4); MONOCYTES 8.8 % (2-11); NEUTROPHILS 81.3 % (40-80); PLATELET COUNT 266 10x3/uL (130-400); RDW 12.6 % (11.5-14.5); WBC 20.3 10x3/uL (4.8-10.8)
[2019-04-05 02:16] LABS: CALC OSMOLALITY 282 mosm/kg (275-300); CALCIUM 9.4 mg/dL (8.5-10.1); CARBON DIOXIDE 23.2 mmol/L (21.0-32.0); CHLORIDE - SERUM 99 mmol/L (98-107); CREATININE - SERUM 2.6 mg/dL (0.6-1.3); POTASSIUM - SERUM 4.3 mmol/L (3.5-5.1); SODIUM 137 mmol/L (136-145); UREA NITROGEN 44 mg/dL (7-18); eGFR NON AFRICAN AMERICAN 28 mL/min (90-120)
[2019-04-05 02:17] LABS: GLUCOSE 64 mg/dL (74-106)
[2019-04-05 02:54] LABS: ALBUMIN 4.5 g/dL (3.4-5.0); ALKALINE PHOSPHATASE 76 U/L (46-116); ALT (SGPT) 104 U/L (10-68); BILIRUBIN - TOTAL 1.56 mg/dL (0.2-1.3); PRO BNP 229 pg/mL (0-125); PROTEIN - SERUM 8.5 g/dL (6.4-8.2); TROPONIN-I 0.044 ng/mL (0.000-0.060)
[2019-04-05 02:57] LABS: CREATINE KINASE 4610 UL (21-232)
[2019-04-05 02:58] LABS: CKMB 21.8 U/L (0.0-3.6)
[2019-04-05 04:55] VITALS: BP 124/71; BMI 24.6
[2019-04-05 05:08] LABS: APPEARANCE CLOUDY (CLEAR); COLOR YELLOW (YELLOW)
[2019-04-05 05:09] LABS: UDS - AMPHET POSITIVE QUAL (NEGATIVE); UDS - BARB NEGATIVE QUAL (NEGATIVE); UDS - BENZO NEGATIVE QUAL (NEGATIVE); UDS - COCAINE NEGATIVE QUAL (NEGATIVE); UDS - OPIATE NEGATIVE QUAL (NEGATIVE); UDS - PCP NEGATIVE QUAL (NEGATIVE); UDS - THC NEGATIVE QUAL (NEGATIVE)
[2019-04-05 05:11] LABS: BILIRUBIN NEGATIVE (NEGATIVE); GLUCOSE NEGATIVE (NEGATIVE); KETONE SMALL mg/dL (NEGATIVE); NITRITE NEGATIVE (NEGATIVE); PROTEIN 1+ mg/dL (NEGATIVE); UROBILINOGEN NORMAL (NORMAL)
[2019-04-05 05:12] LABS: BACTERIA MODERATE /hpf (NEGATIVE); EPITHELIAL CELLS 0-5 /hpf (0-5); RED CELLS - URINE 0-5 /hpf (0-5); WHITE CELLS - URINE 0-5 /hpf (NEGATIVE)
[2019-04-05 09:27] VITALS: BP 110/72
--- NOTE | 2019-04-05 10:20 | NUR ---
PATIENT IS RESTING ON HIS LEFT SIDE IN BED AT THIS TIME. LANE MARKER INSTALLER IS ABOUT TO GIVE HIM A BEDBATH BECASUE HE IS CONFUSED AND DISORIENTED. HE IS INCONTINENT AND IS A NEW ADMISSION. HE IS RESTING AT THIS TIME AND DENIES ANY NEEDS.
[2019-04-05 12:36] VITALS: BP 110/64
--- NOTE | 2019-04-05 13:40 | NUR ---
PATIENT IS RESTING QUIETLY AT THIS TIME. HE HAS BEEN SLEEPING ALL DAY. FLUIDS CONTINUEING ORDERED.
--- NOTE | 2019-04-05 14:41 | NUR ---
MOM-AMOL LOPEZ #[id number] , jemima-SHERMAN HAYDEN #[id number]
[2019-04-05 17:26] VITALS: Ht 167.6 cm; Wt 69.1 kg
[2019-04-05 20:00] VITALS: BP 117/72
[2019-04-06] VITALS: BP 102/57
[2019-04-06 04:00] VITALS: BP 120/72
[2019-04-06 04:53] LABS: BASOPHILS 0.4 % (0-2); EOSINOPHILS 1.7 % (0-7); HEMATOCRIT 39.8 % (42.0-54.0); HEMOGLOBIN 12.9 g/dL (13.5-17.5); IMMATURE GRANULOCYTES 0.1 % (0-5); LYMPHOCYTES 28.8 % (15-50); MCH 31.5 pg (26.0-34.0); MCHC 32.4 g/dL (31.0-37.0); MCV 97.3 fL (80.0-100.0); MEAN PLATELET VOLUME 10.1 fL (7.4-10.4); MONOCYTES 10.5 % (2-11); NEUTROPHILS 58.5 % (40-80); PLATELET COUNT 175 10x3/uL (130-400); RBC 4.09 10x6/uL (4.20-6.10); RDW 12.5 % (11.5-14.5); WBC 6.9 10x3/uL (4.8-10.8)
[2019-04-06 05:38] LABS: CARBON DIOXIDE 22.7 mmol/L (21.0-32.0); CHLORIDE - SERUM 108 mmol/L (98-107); GLUCOSE 83 mg/dL (74-106); POTASSIUM - SERUM 4.5 mmol/L (3.5-5.1); SODIUM 139 mmol/L (136-145)
[2019-04-06 05:47] LABS: CALC OSMOLALITY 279 mosm/kg (275-300); CREATINE KINASE 2193 UL (21-232); CREATININE - SERUM 0.8 mg/dL (0.6-1.3); UREA NITROGEN 20 mg/dL (7-18); eGFR NON AFRICAN AMERICAN > 90 mL/min (90-120)
[2019-04-06 06:17] LABS: CKMB 18.2 U/L (0.0-3.6)
--- NOTE | 2019-04-06 07:23 | NUR ---
PT RESTING PEACEFULLY, BREATHS EVEN/REGULAR AND UNLABORED. NO SIGNS/SYMPTOMS OF ACUTE DISTRESS NOTED AT THIS TIME. CL INR EACH, SRX2,
[2019-04-06 09:06] VITALS: BP 134/82
[2019-04-06 10:16] LABS: ALKALINE PHOSPHATASE 49 U/L (46-116); ALT (SGPT) 73 U/L (10-68); BILIRUBIN - TOTAL 0.93 mg/dL (0.2-1.3)
[2019-04-06 10:17] LABS: ALBUMIN 2.8 g/dL (3.4-5.0); PROTEIN - SERUM 5.8 g/dL (6.4-8.2)
--- NOTE | 2019-04-06 13:10 | NUR ---
I have reviewed this patient and I concur with the Shift Assessment completed by the Licensed Practical Nurse today this shift.
[2019-04-06 13:16] VITALS: BP 116/75
--- NOTE | 2019-04-06 19:10 | NUR ---
BEDSIDE REPORT RECEIVED FROM DAY SHIFT, PT CARE ASSUMED. INTRODUCED SELF AND WROTE NAME ON BOARD. PT LYING IN BED WITH EYES CLOSED, RR EVEN AND NONLABORED, NO S/S OF DISTRESS, AROUSES TO VOICE, ORIENTED X4. REQUESTING TURKEY SANDWICH, PROVIDED. DENIES ANY OTHER NEEDS AT THIS TIME. BED IN LOWEST POSITION, SR X2, CALL LIGHT WITHIN REACH. WILL CONTINUE TO MONITOR.
--- NOTE | 2019-04-06 19:36 | NUR ---
PT HAS BEEN RESTING PEACEFULLY ALL DAY, WAKES AND WALKS WITHOUT DIFFICULTY TO USE THE RESTROOM. TAKES PILLS WITH EASE AND WAKES WITH MINIMAL STIMULATION. FAMILY CALLED ONCE AND ASKED NURSES AND DRS TO ENCOURAGE PT TO GO TO A REHAB PROGRAM IN [place]. ASKED PT, DISCUSSED PROS OF IT, PT DECLINED. CL IN REACH, SRX2, NO FAMILY AT BEDSIDE.
[2019-04-06 19:54] VITALS: BP 136/80
[2019-04-06 20:00] VITALS: BP 135/82
[2019-04-07] VITALS: BP 114/55
[2019-04-07 04:00] VITALS: BP 128/88
[2019-04-07 05:15] LABS: BASOPHILS 0.5 % (0-2); EOSINOPHILS 2.3 % (0-7); HEMATOCRIT 41.7 % (42.0-54.0); HEMOGLOBIN 13.8 g/dL (13.5-17.5); IMMATURE GRANULOCYTES 0.3 % (0-5); LYMPHOCYTES 25.3 % (15-50); MCH 32.3 pg (26.0-34.0); MCHC 33.1 g/dL (31.0-37.0); MCV 97.7 fL (80.0-100.0); MEAN PLATELET VOLUME 10.5 fL (7.4-10.4); NEUTROPHILS 62.6 % (40-80); PLATELET COUNT 209 10x3/uL (130-400); RBC 4.27 10x6/uL (4.20-6.10); RDW 12.5 % (11.5-14.5)
[2019-04-07 05:21] LABS: ALBUMIN 2.7 g/dL (3.4-5.0); ALKALINE PHOSPHATASE 54 U/L (46-116); ALT (SGPT) 66 U/L (10-68); CALC OSMOLALITY 283 mosm/kg (275-300); CARBON DIOXIDE 23.5 mmol/L (21.0-32.0); CHLORIDE - SERUM 109 mmol/L (98-107); CREATININE - SERUM 0.9 mg/dL (0.6-1.3); GLUCOSE 113 mg/dL (74-106); POTASSIUM - SERUM 4.4 mmol/L (3.5-5.1); PROTEIN - SERUM 5.9 g/dL (6.4-8.2); SODIUM 141 mmol/L (136-145); UREA NITROGEN 17 mg/dL (7-18); eGFR NON AFRICAN AMERICAN > 90 mL/min (90-120)
[2019-04-07 08:55] VITALS: BP 146/83
[2019-04-07 11:51] VITALS: BP 128/94
--- NOTE | 2019-04-07 13:18 | MORECARE ---
CASE MANAGEMENT DISCHARGE SUMMARY PATIENT: SHERMAN HAYDEN V UNIT: [id number] ADM DATE: 04/05/19 AGE: 49 : 68 SEX: M ROOM/BED: D.2103 AUTHOR: LEONARDO WARE PHYSICIAN: REFERRING PHYSICIAN: JOSE RAMON MILLS MD DATE OF SERVICE: 04/07/19 Discharge Plan Patient Name: SHERMAN HAYDEN Facility: [facility]:[place] : 1970 Planned Disposition: Home or Self Care Anticipated Discharge Date: Discharge Date: Expected LOS: Initial Reviewer: [email or web address] Initial Review Date: 04/07/2019 Generated: 04/07/19 2:18 pm Coverage Notice Reviewer: [id number] - Dominga Wilkinson Notice Issued Date-Time: 04/07/2019 13:17 Notice Type: IM Discharge Notice Notice Delivered To: Patient Relationship to Patient: Center Specialists Name: Delivery Method: HAND - Hand Delivered Lilian Days: Prior Verbal Notification: Recipient Understood Notice: Yes Recipient Signature: Yes Med Rec Note Co-signed by Attending: Coverage Notice Comment: Patient Name: SHERMAN HAYDEN Page [id number] at 1318 All edits/amendments must be made on the electronic document DICTATION DATE: 04/07/19 1318 SENIOR UI UX DESIGNER: RAYMOND 04/07/19 1318 RPT#: [id number] DC DATE: STATUS: ADM IN [place] [address] [place] [address] END OF REPORT
--- NOTE | 2019-04-07 13:25 | MORECARE ---
CASE MANAGEMENT DISCHARGE SUMMARY PATIENT: SHERMAN HAYDEN V UNIT: [id number] ADM DATE: 04/05/19 AGE: 49 : 68 SEX: M ROOM/BED: D.2103 AUTHOR: LEONARDO WARE PHYSICIAN: REFERRING PHYSICIAN: JOSE RAMON MILLS MD DATE OF SERVICE: 04/07/19 Discharge Plan Patient Name: SHERMAN HAYDEN Facility: [facility]:[place] : 1970 Planned Disposition: Home or Self Care Anticipated Discharge Date: Discharge Date: Expected LOS: Initial Reviewer: [email or web address] Initial Review Date: 04/07/2019 Generated: 04/07/19 2:25 pm Comments DCP- Discharge Planning Updated by [email or web address]: Dominga Wilkinson on 04/07/19 12:[address] Patient Name: SHERMAN HAYDEN Admission Status: ER Accout number: [id number] Admission Date: 04-05-2019 : 1970 Admission Diagnosis: Attending: JOSE RAMON MILLS Current LOS: 2 Anticipated DC Date: Planned Disposition: Home or Self Care Primary Insurance: [facility] MEDICARE SOLUTIONS Discharge Planning Comments: CM MET WITH PATIENT ABOUT DC PLANNING/NEEDS. DENIES NEED FOR HH, REHAB, OR EQUIPMENT. PLANS TO DC TODAY. IMM SIGNED. Gas Engine Operator: Dominga Wilkinson DCPIA - Discharge Planning Initial Assessment Updated by [email or web address]: Dominga Wilkinson on 04/07/19 1:19 pm * Is the patient Alert and Oriented? Yes * ADLs Independent * Other Equipment NONE * Please name any agencies selected above. NONE * Additional services required to return to the preadmission environment? No * Can the patient safely return to the preadmission environment? Yes * Has this patient been hospitalized within the prior 30 days at any hospital? No Coverage Notice Reviewer: [id number] - Dominga Wilkinson Notice Issued Date-Time: 04/07/2019 13:17 Notice Type: IM Discharge Notice Notice Delivered To: Patient Relationship to Patient: Technology Strategist Name: Delivery Method: HAND - Hand Delivered Lilian Days: Prior Verbal Notification: Recipient Understood Notice: Yes Recipient Signature: Yes Med Rec Note Co-signed by Attending: Coverage Notice Comment: Last DP export: 04/07/19 12:18 p Patient Name: SHERMAN HAYDEN Page [id number] at 1325 All edits/amendments must be made on the electronic document DICTATION DATE: 04/07/19 1325 JOB PLACEMENT OFFICER: RAYMOND 04/07/19 1325 RPT#: [id number] DC DATE: STATUS: ADM IN [facility] [address] [place] [address] END OF REPORT
--- NOTE | 2019-04-07 16:06 | MORECARE ---
CASE MANAGEMENT DISCHARGE SUMMARY PATIENT: SHERMAN HAYDEN V UNIT: [id number] ADM DATE: 04/05/19 AGE: 49 : 68 SEX: M ROOM/BED: D.2103 AUTHOR: [email or web address] PHYSICIAN: REFERRING PHYSICIAN: JOSE RAMON MILLS MD DATE OF SERVICE: 04/07/19 Discharge Plan Patient Name: SHERMAN HAYDEN Facility: [facility]:[place] : 1970 Planned Disposition: Home or Self Care Anticipated Discharge Date: Discharge Date: 04/07/2019 Expected LOS: Initial Reviewer: [email or web address] Initial Review Date: 04/07/2019 Generated: 04/07/19 5:05 pm Comments DCP- Discharge Planning Updated by [email or web address]: Dominga Wilkinson on 04/07/19 12:[address] Patient Name: SHERMAN HAYDEN Admission Status: ER Accout number: [id number] Admission Date: 04-05-2019 : 1970 Admission Diagnosis: Attending: JOSE RAMON MILLS Current LOS: 2 Anticipated DC Date: Planned Disposition: Home or Self Care Primary Insurance: [facility] MEDICARE SOLUTIONS Discharge Planning Comments: CM MET WITH PATIENT ABOUT DC PLANNING/NEEDS. DENIES NEED FOR HH, REHAB, OR EQUIPMENT. PLANS TO DC TODAY. IMM SIGNED. Parts Counter Associate: Dominga Wilkinson DCPIA - Discharge Planning Initial Assessment Updated by [email or web address]: Dominga Wilkinson on 04/07/19 1:19 pm * Is the patient Alert and Oriented? Yes * ADLs Independent * Other Equipment NONE * Please name any agencies selected above. NONE * Additional services required to return to the preadmission environment? No * Can the patient safely return to the preadmission environment? Yes * Has this patient been hospitalized within the prior 30 days at any hospital? No Coverage Notice Reviewer: [id number] - Dominga Wilkinson Notice Issued Date-Time: 04/07/2019 13:17 Notice Type: IM Discharge Notice Notice Delivered To: Patient Relationship to Patient: Reconditioning Associate Name: Delivery Method: HAND - Hand Delivered Lilian Days: Prior Verbal Notification: Recipient Understood Notice: Yes Recipient Signature: Yes Med Rec Note Co-signed by Attending: Coverage Notice Comment: Last DP export: 12/8/19 12:25 p Patient Name: SHERMAN HAYDEN Page [id number] at 1606 All edits/amendments must be made on the electronic document DICTATION DATE: 04/07/191604 JAVA J2EE ARCHITECT: RAYMOND 04/07/191604 RPT#: [id number] DC DATE:04/07/19 STATUS: DIS IN [facility] [address] [place] [address] END OF REPORT
== END 2019-04-07 15:31 | disposition home or self-care (01) | DRG 683 ==
LOC: D.ER 01:36 → D.M2 03:19
PROVIDERS: Family Medicine; ADMIT Internal Medicine Nephrology; ATTEND Internal Medicine Nephrology
DX: N17.9 Acute kidney failure, unspecified (principal); M62.82 Rhabdomyolysis; F22 Delusional disorders; F15.10 Other stimulant abuse, uncomplicated; I10 Essential (primary) hypertension; E78.5 Hyperlipidemia, unspecified; I25.10 Atherosclerotic heart disease of native coronary artery without angina pectoris; K75.9 Inflammatory liver disease, unspecified; E11.65 Type 2 diabetes mellitus with hyperglycemia; F20.9 Schizophrenia, unspecified; Z91.14 Patient's other noncompliance with medication regimen; Z21 Asymptomatic human immunodeficiency virus [HIV] infection status

== ENCOUNTER 2019-07-24 19:04 | Emergency (ER) | payer MEDICARE, MEDICAID ==
[~2019-07-24] VITALS: Ht 167.6 cm; Wt 54.5 kg
[2019-07-24 19:26] VITALS: Ht 167.6 cm; Wt 54.5 kg
[2019-07-24 19:56] LABS: BASOPHILS 0.6 % (0-2); HEMATOCRIT 41.4 % (42.0-54.0); HEMOGLOBIN 13.7 g/dL (13.5-17.5); IMMATURE GRANULOCYTES 0.2 % (0-5); LYMPHOCYTES 19.7 % (15-50); MCH 31.9 pg (26.0-34.0); MCHC 33.1 g/dL (31.0-37.0); MCV 96.3 fL (80.0-100.0); MEAN PLATELET VOLUME 9.9 fL (7.4-10.4); MONOCYTES 6.7 % (2-11); NEUTROPHILS 69.8 % (40-80); PLATELET COUNT 200 10x3/uL (130-400); RDW 12.6 % (11.5-14.5)
[2019-07-24 20:23] LABS: CALC OSMOLALITY 279 mosm/kg (275-300); CALCIUM 8.7 mg/dL (8.5-10.1); CARBON DIOXIDE 24.5 mmol/L (21.0-32.0); CHLORIDE - SERUM 106 mmol/L (98-107); CREATININE - SERUM 1.2 mg/dL (0.6-1.3); GLUCOSE 89 mg/dL (74-106); POTASSIUM - SERUM 4.1 mmol/L (3.5-5.1); SODIUM 140 mmol/L (136-145); UREA NITROGEN 19 mg/dL (7-18); eGFR NON AFRICAN AMERICAN 68 mL/min (90-120)
[2019-07-24 20:43] LABS: BILIRUBIN NEGATIVE (NEGATIVE); GLUCOSE NEGATIVE (NEGATIVE); KETONE NEGATIVE (NEGATIVE); NITRITE NEGATIVE (NEGATIVE); UROBILINOGEN NORMAL (NORMAL)
[2019-07-24 20:48] LABS: ALBUMIN 3.7 g/dL (3.4-5.0); ALKALINE PHOSPHATASE 68 U/L (30-120); ALT (SGPT) 32 U/L (10-68); LIPASE 78 U/L (73-393); MAGNESIUM - SERUM 2.2 mg/dL (1.8-2.4); PRO BNP 163 pg/mL (0-125); PROTEIN - SERUM 6.7 g/dL (6.4-8.2); THYROID STIMULATING HORMONE 0.88 uIU/mL (0.36-3.74)
[2019-07-24 20:49] LABS: CREATINE KINASE 1121 UL (21-232); TROPONIN-I < 0.017 ng/mL (0.000-0.060)
[2019-07-24 20:50] LABS: CKMB 8.3 U/L (0.0-3.6)
[2019-07-24 20:52] LABS: UDS - AMPHET POSITIVE QUAL (NEGATIVE); UDS - BARB NEGATIVE QUAL (NEGATIVE); UDS - BENZO NEGATIVE QUAL (NEGATIVE); UDS - COCAINE NEGATIVE QUAL (NEGATIVE); UDS - OPIATE NEGATIVE QUAL (NEGATIVE); UDS - PCP NEGATIVE QUAL (NEGATIVE); UDS - THC NEGATIVE QUAL (NEGATIVE)
[2019-07-24 21:12] VITALS: BP 132/85
== END 2019-07-24 19:30 | disposition home or self-care (01) ==
LOC: D.ER 19:04
PROVIDERS: Family Medicine
DX: R41.82 Altered mental status, unspecified (principal); I25.10 Atherosclerotic heart disease of native coronary artery without angina pectoris; B20 Human immunodeficiency virus [HIV] disease; R44.2 Other hallucinations

== ENCOUNTER 2019-07-26 20:37 | Emergency (ER) | payer MEDICARE, MEDICAID ==
[~2019-07-26] VITALS: Ht 167.6 cm; Wt 68.2 kg
[2019-07-26 20:45] VITALS: Ht 167.6 cm; Wt 68.2 kg
[2019-07-26 20:56] LABS: BASOPHILS 0.9 % (0-2); EOSINOPHILS 5.2 % (0-7); HEMATOCRIT 42.7 % (42.0-54.0); IMMATURE GRANULOCYTES 0.2 % (0-5); LYMPHOCYTES 29.1 % (15-50); MCH 31.7 pg (26.0-34.0); MCHC 32.8 g/dL (31.0-37.0); MCV 96.8 fL (80.0-100.0); MEAN PLATELET VOLUME 9.9 fL (7.4-10.4); MONOCYTES 7.2 % (2-11); NEUTROPHILS 57.4 % (40-80); PLATELET COUNT 194 10x3/uL (130-400); RBC 4.41 10x6/uL (4.20-6.10); RDW 12.5 % (11.5-14.5); WBC 6.6 10x3/uL (4.8-10.8)
[2019-07-26 21:06] LABS: ANION GAP 11.2 mmol/L (8-16); CALCIUM 9.2 mg/dL (8.5-10.1); CREATININE - SERUM 1.6 mg/dL (0.6-1.3); POTASSIUM - SERUM 4.2 mmol/L (3.5-5.1)
[2019-07-26 21:11] LABS: ALBUMIN 3.8 g/dL (3.4-5.0); BILIRUBIN - TOTAL 0.54 mg/dL (0.2-1.3); PROTEIN - SERUM 7.4 g/dL (6.4-8.2)
[2019-07-26 22:23] LABS: BILIRUBIN NEGATIVE (NEGATIVE); GLUCOSE NEGATIVE (NEGATIVE); KETONE NEGATIVE (NEGATIVE); NITRITE NEGATIVE (NEGATIVE); UROBILINOGEN NORMAL (NORMAL)
[2019-07-26 22:30] LABS: UDS - AMPHET POSITIVE QUAL (NEGATIVE); UDS - BARB NEGATIVE QUAL (NEGATIVE); UDS - BENZO POSITIVE QUAL (NEGATIVE); UDS - COCAINE NEGATIVE QUAL (NEGATIVE); UDS - OPIATE NEGATIVE QUAL (NEGATIVE); UDS - PCP NEGATIVE QUAL (NEGATIVE); UDS - THC POSITIVE QUAL (NEGATIVE)
[2019-07-27] MEDS ORDERED: SEROQUEL100 MG PO (05:51)
[2019-07-27 12:00] VITALS: BP 112/54
== END 2019-07-27 13:17 | disposition home or self-care (01) ==
LOC: D.ER 20:37
PROVIDERS: Emergency Medicine
DX: F15.959 Other stimulant use, unspecified with stimulant-induced psychotic disorder, unspecified (principal); Z91.14 Patient's other noncompliance with medication regimen; F29 Unspecified psychosis not due to a substance or known physiological condition

== ENCOUNTER 2020-01-18 00:07 | Emergency (ER) | payer MEDICARE, MEDICAID ==
[~2020-01-18] VITALS: Ht 167.6 cm; Wt 65.9 kg
[~2020-01-18 00:07] MED LIST changes: +SEROQUEL100 MG PO
[2020-01-18 00:16] VITALS: BP 131/74; Ht 167.6 cm; Wt 65.9 kg
--- NOTE | 2020-01-18 00:42 | NUR ---
PATIENT IN ER FOR ALLERGIES TO EYES AND HE SAYS THAT HE WAS EXPOSED TO COVID AND HE WANTS TO BE TESTED. HE IS NOT SUICIDIAL. IT HAS BEEN YEARS SINCE HE ATTEMPTED SUICIDE. 1-800 NUMBER GIVEN FOR FUTURE REFERENCE.
[2020-01-18] MEDS ORDERED: FLUTICASONE PRO16 GM NASAL (01:03)
[2020-01-18] MEDS ORDERED: AUGMENTIN 875-11 TAB PO (01:03)
== END 2020-01-18 01:09 | disposition home or self-care (01) ==
LOC: D.ER 00:07
DX: J01.90 Acute sinusitis, unspecified (principal); Z72.0 Tobacco use